=== PATIENT | male | born 1950 | race Caucasian/White ===

== ENCOUNTER 2017-06-07 22:53 | Emergency (ER) | payer MEDICARE ==
[2017-06-07] MEDS ORDERED: SODIUM CHLORIDE 0.9% 1,000 ML IV STA ×2 (23:03)
--- NOTE | 2017-06-07 23:05 | ED ---
General Adult HPI - General Chief complaint: Chest Pain Stated complaint: a-fib Time Seen by Provider: 06/07/17 23:00 Source: patient, RN notes reviewed, old records reviewed Mode of arrival: wheelchair Limitations: physical limitation - History of Present Illness Initial comments: This is a 66-year-old male to the ER for evaluation of elevated heart rate low blood pressure. Patient has history of same. Patient has history of A. fib. History of high blood pressure. Patient takes nitro for his heart disease and was taking nitro to help with his elevated heart rate which did not help. His heart rate continued to get worse. Patient is also complaining of lightheadedness, he denies any chest pain or shortness of breath no headache. Patient has no other change in medications as of late. No significant complaints. This is a patient has which is ongoing. Patient also admits to not having metoprolol 2 days - Related Data Home Medications Medication Instructions Recorded Confirmed Albuterol Inhaler [Ventolin Hfa 2 puff INHALATION Q6HR PRN 07/17/14 10/25/15 Inhaler] Aspirin 325 mg PO HS 07/17/14 10/25/15 Citalopram Hydrobromide [CeleXA] 20 mg PO QAM 07/17/14 10/24/15 Hydrocodone/Acetaminophen [[place] 1 each PO TID PRN 07/17/14 10/24/15 10-325] Metoprolol Tartrate [Lopressor] 12.5 mg PO QAM 07/17/14 10/24/15 Omeprazole [PriLOSEC] 20 mg PO AC-BRKFST 07/17/14 10/24/15 Simvastatin [Zocor] 20 mg PO 07/17/14 10/24/15 Tamsulosin HCl [Flomax] 0.4 mg PO QAM 07/17/14 10/25/15 Nitroglycerin Sl Tabs [Nitrostat] 0.4 mg SUBLINGUAL DIRECTED PRN 12/07/14 Cyclobenzaprine [Flexeril] 10 mg PO HS 10/24/15 10/25/15 Losartan/Hydrochlorothiazide 1 tab PO QAM 10/24/15 10/24/15 [Hyzaar 100-25 Tablet] Allergies Allergy/AdvReac Type Severity Reaction Status Date / Time No Known Allergies Allergy Verified 06/07/17 22:59 Review of Systems ROS Statement: Those systems with pertinent positive or pertinent negative responses have been documented in the HPI. ROS Other: All systems not noted in ROS Statement are negative. Past Medical History Past Medical History: Chest Pain / Angina, COPD, GERD/Reflux, Hearing Disorder / Deafness, Hyperlipidemia, Hypertension, Myocardial Infarction ([place]), Osteoarthritis ([place]) Additional Past Medical History / Comment(s): migraines, kidney stone Last Myocardial Infarction Date:: 2009 History of Any Multi-Drug Resistant Organisms: None Reported Past Surgical History: Appendectomy, Heart Catheterization With Stent, Orthopedic Surgery Additional Past Surgical History / Comment(s): rt ROTATOR CUFF, DEVIATED SEPTUM , angioplasty x 2 Past Anesthesia/Blood Transfusion Reactions: No Reported Reaction Date of Last Stent Placement:: 2009 Past Psychological History: No Psychological Hx Reported Smoking Status: Current every day smoker Past Alcohol Use History: None Reported Past Drug Use History: None Reported - Past Family History Father Family Medical History: Dementia Mother Additional Family Medical History / Comment(s): WHEN PT WAS 6 SHE HAD RHEUMATIC HEART Brother(s) Family Medical History: Cancer Son(s) Family Medical History: Deep Vein Thrombosis (DVT) General Exam Limitations: physical limitation General appearance: alert, in no apparent distress Head exam: Present: atraumatic, normocephalic, normal inspection Eye exam: Present: normal appearance, PERRL, EOMI. Absent: scleral icterus, conjunctival injection, periorbital swelling ENT exam: Present: normal exam, mucous membranes moist Neck exam: Present: normal inspection. Absent: tenderness, meningismus, lymphadenopathy Respiratory exam: Present: normal lung sounds bilaterally. Absent: respiratory distress, wheezes, rales, rhonchi, stridor Cardiovascular Exam: Present: normal rhythm, tachycardia, normal heart sounds. Absent: systolic murmur, diastolic murmur, rubs, gallop, clicks GI/Abdominal exam: Present: soft, normal bowel sounds. Absent: distended, tenderness, guarding, rebound, rigid Extremities exam: Present: normal inspection, full ROM, normal capillary refill. Absent: tenderness, pedal edema, joint swelling, calf tenderness Back exam: Present: normal inspection Neurological exam: Present: alert, oriented X3, CN II-XII intact Psychiatric exam: Present: normal affect, normal mood Skin exam: Present: warm, dry, intact, normal color. Absent: rash Course Vital Signs 06/07/17 06/07/17 06/07/17 22:55 23:15 23:22 Temperature 99.3 F Pulse Rate 165 H 148 H Pulse Rate [ 144 H Tin Can Feeder ] Respiratory 20 18 Rate Blood Pressure 115/71 114/79 O2 Sat by Pulse 98 98 Oximetry 06/07/17 06/07/17 23:27 23:47 Temperature Pulse Rate 70 Pulse Rate [ 70 Tin Can Feeder ] Respiratory 18 Rate Blood Pressure 114/79 O2 Sat by Pulse 97 Oximetry - Reevaluation(s) Reevaluation #1: 06/08/17 00:24 Patient symptoms resolved with IV metoprolol, heart rate lowered blood pressure elevated and patient can be discharged home EKG Findings - EKG Comments: EKG Findings:: EKG shows sinus tachycardia rate of 155, QRS 166, QRS 70, QTc [address] depression laterally Medical Decision Making - Medical Decision Making 66-year-old ER for evaluation of elevated heart rate low blood pressure. That is improved metoprolol. Patient can be discharged home with states at this point he feels fine with no chest pain or shortness of breath no abdominal pain. That she would like to be discharged home, patient sitting up in bed comfortable talking to his and states his reviewable - Lab Data Result diagrams: 06/07/17 23:15 06/07/17 23:15 Lab Results 06/07/17 06/07/17 06/07/17 Range/Units 23:15 23:15 23:15 WBC 16.5 H (3.8-10.6) k/uL RBC 4.90 (4.30-5.90) m/uL Hgb 16.0 (13.0-17.5) gm/dL Hct 46.5 (39.0-53.0) % MCV 94.9 (80.0-100.0) fL MCH 32.6 (25.0-35.0) pg MCHC 34.3 (31.0-37.0) g/dL RDW 13.5 (11.5-15.5) % Plt Count 321 (150-450) k/uL Neutrophils % 65 % Lymphocytes % 24 % Monocytes % 7 % Eosinophils % 2 % Basophils % 1 % Neutrophils # 10.6 H (1.3-7.7) k/uL Lymphocytes # 4.0 (1.0-4.8) k/uL Monocytes # 1.1 H (0-1.0) k/uL Eosinophils # 0.3 (0-0.7) k/uL Basophils # 0.1 (0-0.2) k/uL PT (9.0-12.0) sec INR (<1.2) APTT (22.0-30.0) sec D-Dimer (<0.60) mg/L FEU Sodium 139 (137-145) mmol/L Potassium 4.2 (3.5-5.1) mmol/L Chloride 100 (98-107) mmol/L Carbon Dioxide 24 (22-30) mmol/L Anion Gap 15 mmol/L BUN 20 (9-20) mg/dL Creatinine 1.20 (0.66-1.25) mg/dL Est GFR (MDRD) Af Amer >60 (>60 ml/min/1.73 sqM) Est GFR (MDRD) Non-Af >60 (>60 ml/min/1.73 sqM) Glucose 219 H (74-99) mg/dL Plasma Lactic Acid Sorin (0.7-2.0) mmol/L Calcium 9.8 (8.4-10.2) mg/dL Phosphorus 2.4 L (2.5-4.5) mg/dL Magnesium 1.6 (1.6-2.3) mg/dL Total Bilirubin 0.5 (0.2-1.3) mg/dL AST 50 (17-59) U/L ALT 51 (21-72) U/L Alkaline Phosphatase 58 (38-126) U/L Total Creatine Kinase 79 (55-170) U/L CK-MB (CK-2) 2.1 (0.0-2.4) ng/mL CK-MB (CK-2) Rel Index 2.7 Troponin I 0.060 H* (0.000-0.034) ng/mL Total Protein 8.1 (6.3-8.2) g/dL Albumin 4.5 (3.5-5.0) g/dL TSH 1.440 (0.465-4.680) mIU/L 06/07/17 06/07/17 Range/Units 23:15 23:15 WBC (3.8-10.6) k/uL RBC (4.30-5.90) m/uL Hgb (13.0-17.5) gm/dL Hct (39.0-53.0) % MCV (80.0-100.0) fL MCH (25.0-35.0) pg MCHC (31.0-37.0) g/dL RDW (11.5-15.5) % Plt Count (150-450) k/uL Neutrophils % % Lymphocytes % % Monocytes % % Eosinophils % % Basophils % % Neutrophils # (1.3-7.7) k/uL Lymphocytes # (1.0-4.8) k/uL Monocytes # (0-1.0) k/uL Eosinophils # (0-0.7) k/uL Basophils # (0-0.2) k/uL PT 9.8 (9.0-12.0) sec INR 1.0 (<1.2) APTT 22.5 (22.0-30.0) sec D-Dimer 1.04 H (<0.60) mg/L FEU Sodium (137-145) mmol/L Potassium (3.5-5.1) mmol/L Chloride (98-107) mmol/L Carbon Dioxide (22-30) mmol/L Anion Gap mmol/L BUN (9-20) mg/dL Creatinine (0.66-1.25) mg/dL Est GFR (MDRD) Af Amer (>60 ml/min/1.73 sqM) Est GFR (MDRD) Non-Af (>60 ml/min/1.73 sqM) Glucose (74-99) mg/dL Plasma Lactic Acid Sorin 3.7 H* (0.7-2.0) mmol/L Calcium (8.4-10.2) mg/dL Phosphorus (2.5-4.5) mg/dL Magnesium (1.6-2.3) mg/dL Total Bilirubin (0.2-1.3) mg/dL AST (17-59) U/L ALT (21-72) U/L Alkaline Phosphatase (38-126) U/L Total Creatine Kinase (55-170) U/L CK-MB (CK-2) (0.0-2.4) ng/mL CK-MB (CK-2) Rel Index Troponin I (0.000-0.034) ng/mL Total Protein (6.3-8.2) g/dL Albumin (3.5-5.0) g/dL TSH (0.465-4.680) mIU/L - Radiology Data Radiology results: report reviewed (Chest x-ray is negative), image reviewed Disposition Clinical Impression: Tachycardia Disposition: HOME SELF-CARE Condition: Good Instructions: Tachycardia (ED) Referrals: Rodrigo Busby III, MD [Primary Care Provider] - 1-2 days
[2017-06-07] MEDS ORDERED: MORPHINE SULFATE 5 MG/ML SYRINGE IVP STA (23:13)
[2017-06-07] MEDS: METOPROLOL TARTRATE 5 MG/5 ML VIAL IVP STA ×2 (23:21→23:30)
[2017-06-07 23:27] LABS: Basophils # (A) 0.1 k/uL (0-0.2); Basophils % (A) 1 %; CH 33.2; CHCM 35.2; Eosinophils # (A) 0.3 k/uL (0-0.7); Eosinophils % (A) 2 %; HCT 46.5 % (39.0-53.0); HDW 3.09; Luc # (Auto) 0.38; Luc % (Auto) 2; Lymphocytes % (A) 24 %; MCH 32.6 pg (25.0-35.0); MCHC 34.3 g/dL (31.0-37.0); MCV 94.9 fL (80.0-100.0); Mean Platelet Volume 6.4; Monocytes # (A) 1.1 k/uL (0-1.0); Monocytes % (A) 7 %; Neutrophils # (A) 10.6 k/uL (1.3-7.7); Neutrophils % (A) 65 %; RDW 13.5 % (11.5-15.5); WBC 16.5 k/uL (3.8-10.6); WBC (Perox) 15.15
[2017-06-07 23:31] VITALS: RESP 18
[2017-06-07 23:37] LABS: ALT 51 U/L (21-72); AST 50 U/L (17-59); Alkaline Phosphatase 58 U/L (38-126); Anion Gap 15 mmol/L; Blood Urea Nitrogen 20 mg/dL (9-20); Calcium 9.8 mg/dL (8.4-10.2); Carbon Dioxide 24 mmol/L (22-30); Chloride 100 mmol/L (98-107); Glucose 219 mg/dL (74-99); Magnesium 1.6 mg/dL (1.6-2.3); Non-African American GFR(MDRD) >60 (>60 ml/min/1.73 sqM); Phosphorus 2.4 mg/dL (2.5-4.5); Potassium 4.2 mmol/L (3.5-5.1); Sodium 139 mmol/L (137-145); Total Bilirubin 0.5 mg/dL (0.2-1.3); Total Protein 8.1 g/dL (6.3-8.2)
[2017-06-07 23:40] LABS: Partial Thromboplastin Time 22.5 sec (22.0-30.0); Prothrombin Time 9.8 sec (9.0-12.0)
[2017-06-08 00:03] LABS: Creatine Kinase MB 2.1 ng/mL (0.0-2.4)
[2017-06-08 00:10] LABS: Troponin I 0.06 ng/mL (0.000-0.034)
--- NOTE | 2017-06-08 00:17 | XR ---
EXAM: XR Chest, 2 Views CLINICAL HISTORY: Reason: Weakness TECHNIQUE: Frontal and lateral views of the chest. COMPARISON: No relevant prior studies available. FINDINGS: Lungs: Mild peribronchial thickening. Mild left lower lobe airspace opacity favoring atelectasis. Pleural space: Unremarkable. No pneumothorax. Heart: Unremarkable. No cardiomegaly. Mediastinum: Unremarkable. Bones/joints: Mild degenerative disc changes. IMPRESSION: 1. Mild peribronchial thickening which could represent small airways disease . No consolidation identified, with mild air space opacity in the left base favoring atelectasis.
[2017-06-08] MEDS ORDERED: RX INFO: IV CONTRAST WAS GIVEN 1 EACH MISC MISCELLANE PRN (00:21)
[2017-06-08 00:30] VITALS: BP 152/83; PULSE 84; TEMP 98.2
== END 2017-06-08 00:34 | disposition home or self-care (01) ==
LOC: EC 22:53
DX: R00.0 Tachycardia, unspecified (principal); R07.9 Chest pain, unspecified; K21.9 Gastro-esophageal reflux disease without esophagitis; E78.5 Hyperlipidemia, unspecified; I10 Essential (primary) hypertension; I25.2 Old myocardial infarction; M19.90 Unspecified osteoarthritis, unspecified site; F17.200 Nicotine dependence, unspecified, uncomplicated; Z79.899 Other long term (current) drug therapy
CPT/HCPCS: 36415; 71020; 80053; 82550; 82553; 83605; 83735; 84100; 84443; 84484; 85025; 85379; 85610; 85730; 93005; 96361; 96374; 99285

== ENCOUNTER 2017-07-23 16:40 | Inpatient (IN) | payer MEDICARE ==
[2017-07-23] MEDS ORDERED: ACETAMINOPHEN TAB 325 MG TAB PO PRN (18:29)
[2017-07-23] MEDS ORDERED: ALBUTEROL NEBULIZED 2.5 MG/3 ML INHALATION PRN (18:32)
[2017-07-23] MEDS ORDERED: NITROGLYCERIN SL TABS 0.4 MG TAB SUBLINGUAL PRN (18:32)
[2017-07-23] MEDS: SODIUM CHLORIDE 0.9% 1,000 ML IV SCH (18:41)
[2017-07-23] MEDS: ALBUTEROL NEBULIZED 2.5 MG/3 ML INHALATION SCH (19:06)
[2017-07-23] MEDS: SYMBICORT 160-4.5 MCG INHALER INHALATION SCH (19:06)
[2017-07-23 19:49] LABS: Basophils # (A) 0.1 k/uL (0-0.2); Basophils % (A) 1 %; Eosinophils # (A) 0.3 k/uL (0-0.7); Eosinophils % (A) 2 %; HCT 44.3 % (39.0-53.0); Lymphocytes # (A) 4.1 k/uL (1.0-4.8); Lymphocytes % (A) 24 %; MCH 32.2 pg (25.0-35.0); MCHC 33.9 g/dL (31.0-37.0); MCV 94.8 fL (80.0-100.0); Mean Platelet Volume 6.9; Monocytes % (A) 6 %; Neutrophils # (A) 11.1 k/uL (1.3-7.7); Neutrophils % (A) 66 %; Platelet Count 291 k/uL (150-450); RBC 4.68 m/uL (4.30-5.90); WBC 16.8 k/uL (3.8-10.6)
[2017-07-23 20:12] LABS: Anion Gap 16 mmol/L; Blood Urea Nitrogen 17 mg/dL (9-20); Calcium 9.8 mg/dL (8.4-10.2); Carbon Dioxide 25 mmol/L (22-30); Chloride 101 mmol/L (98-107); Glucose 148 mg/dL (74-99); Potassium 4.1 mmol/L (3.5-5.1); Sodium 142 mmol/L (137-145)
[2017-07-23] MEDS: AMPICILLIN-SULBACTAM 3 GM in SODIUM CHLORIDE 0.9% 100 ML IVPB SCH (20:13)
[2017-07-23] MEDS: ASPIRIN 325 MG TAB PO SCH (20:13)
[2017-07-23] MEDS: CYCLOBENZAPRINE 10 MG TAB PO SCH (20:13)
[2017-07-23] MEDS: TAMSULOSIN 0.4 MG CAP.ER.24H PO SCH (20:14)
[2017-07-23] MEDS: ATORVASTATIN 10 MG TAB PO SCH (20:14)
[2017-07-23] MEDS: SULFACETAMIDE SOD 10% OPHTH DROPS 15 ML BTL BOTH EYES SCH (20:14)
[2017-07-24] MEDS: AMPICILLIN-SULBACTAM 3 GM in SODIUM CHLORIDE 0.9% 100 ML IVPB SCH ×5 (00:54→23:58)
[2017-07-24] MEDS: SULFACETAMIDE SOD 10% OPHTH DROPS 15 ML BTL BOTH EYES SCH ×4 (03:08→21:59)
[2017-07-24] MEDS: HYDROcodone/APAP 7.5-325MG 1 EACH TAB PO PRN ×3 (04:06→22:00)
[2017-07-24] MEDS: CYCLOBENZAPRINE 10 MG TAB PO SCH ×3 (06:29→21:59)
[2017-07-24] MEDS: SYMBICORT 160-4.5 MCG INHALER INHALATION SCH ×2 (07:22→19:30)
[2017-07-24] MEDS: ALBUTEROL NEBULIZED 2.5 MG/3 ML INHALATION SCH ×3 (07:22→19:30)
[2017-07-24] MEDS: PANTOPRAZOLE 40 MG TABLET PO SCH (08:32)
[2017-07-24] MEDS: LOSARTAN-HCTZ 50-12.5 MG 1 EACH TAB PO SCH (08:32)
[2017-07-24] MEDS: DOCUSATE 100 MG CAP PO SCH (08:32)
[2017-07-24] MEDS: CITALOPRAM HYDROBROMIDE 20 MG TAB PO SCH (08:32)
[2017-07-24] MEDS: HYDROCHLOROTHIAZIDE 12.5 MG CAP PO SCH (08:33)
[2017-07-24] MEDS: METOPROLOL TARTRATE 25 MG TAB PO SCH (08:33)
[2017-07-24] MEDS: CLOTRIMAZOLE 1% CREAM 15 GM TUBE TOPICAL SCH ×2 (08:33→08:36)
--- NOTE | 2017-07-24 15:02 | CONS ---
CONSULTATION CHIEF COMPLAINT: Right arm and hand pain along with redness and drainage. HISTORY OF PRESENT ILLNESS: The patient is a 66-year-old, right-hand dominant, retired male who presents with a several day history of right arm and hand pain along with redness and drainage after being bitten by his dog at home. He initially was seen in an outpatient facility and was sent to the emergency room. He notes some low-grade fevers, however, denies chills. He was given a tetanus booster at his outpatient visit. PAST MEDICAL HISTORY: Significant for COPD, coronary artery disease, arthritis, hyperlipidemia, and hypertension along with history of renal stones. CURRENT MEDICATIONS: Are reviewed. He denies drug allergies. FAMILY HISTORY: Noncontributory. SOCIAL HISTORY: Negative for current tobacco or alcohol use. REVIEW OF SYSTEMS: Sixteen point review of systems otherwise reviewed and is noncontributory. PHYSICAL EXAMINATION: On examination, patient is a well-developed, well-nourished male of endomorphic habitus. Currently, his temperature is 99 degrees with stable vital signs. He is alert and oriented x4. He is nontender about the cervical, thoracic, and lumbar spine. He is nontender about the right shoulder and elbow. On examination of his right forearm, he has multiple puncture wounds with moderate swelling and erythema about a mid ulnar forearm wound with mild drainage. He also has multiple wounds about his right palm. Over the thenar eminence, there is moderate swelling and erythema. There is expressible purulent drainage from that wound as well. He is nontender over the flexor sheaths of all digits. He is able to make a full fist. Light touch is distally intact. Laboratory results show peripheral white blood cell count of 16.8. IMPRESSION: Multiple dog bites on the right forearm and hand with cellulitis/abscess. RECOMMENDATIONS: I talked to the patient and his regarding his treatment options. At this point, we will plan to proceed with incision and drainage of his right palmar wound along with the right ulnar forearm wound. We will continue antibiotics per Infectious Disease. Thank you for this consultation. MMJOCELINEL / CHAPARRITAN: [id number] /
[2017-07-24 15:51] LABS: Prothrombin Time 10.2 sec (9.0-12.0)
[2017-07-24] MEDS: SODIUM CHLORIDE 0.9% 1,000 ML IV SCH (16:41)
[2017-07-24] MEDS: ATORVASTATIN 10 MG TAB PO SCH (21:59)
[2017-07-24] MEDS: ASPIRIN 325 MG TAB PO SCH (21:59)
[2017-07-24] MEDS: TAMSULOSIN 0.4 MG CAP.ER.24H PO SCH (21:59)
--- NOTE | 2017-07-24 22:02 | HP ---
HISTORY AND PHYSICAL DATE OF SERVICE: 07/24/2017 CHIEF COMPLAINTS: Right arm swelling and dog bite. HISTORY OF PRESENT ILLNESS: This 66-year-old gentleman with a past medical history of multiple medical problems, including COPD, GERD, hypertension, hyperlipidemia, myocardial infarction being followed by Dr. Busby in the outpatient setting apparently was bitten by the dog few days ago. The patient was bitten by the dog at 2 places. The dog is okay, up to date with injections and the patient noted pain and swelling of the palm of the right hand as well as the lower forearm and the patient came to [facility], admitted for further evaluation and treatment. The patient is having low-grade fevers. No headache, loss of consciousness, seizures at this time. PAST MEDICAL HISTORY: History of COPD, GERD, hearing defects, hypertension, hyperlipidemia, history of myocardial infarction, DJD. MEDICATIONS PRIOR TO ADMISSION: Include: 1. Bleph-10 1 drop both eyes every 6 hours. 2. Ventolin 2 puffs q.4h p.r.n. 3. Ketoconazole 2% 1 application daily. 4. Celexa 20 mg q.a.m. 5. Symbicort 160/4.5, 2 puffs b.i.d. 6. Albuterol 2 puffs b.i.d. 7. Omeprazole 40 mg q.a.m. 8. Hydrocodone 7.5 mg t.i.d. 9. Flexeril 10 mg q.i.d. 10.Nitrostat 0.4 sublingual p.r.n. 11.Lopressor . 12.Losartan 100/25 mg q.a.m. 13.Flomax 0.4 q.h.s. 14.Zocor 20 mg q.h.s. 15.Colace 100 mg q.a.m. 16.Aspirin 325 mg q.h.s. ALLERGIES: None. FAMILY HISTORY: History of dementia, rheumatic heart disease. SOCIAL HISTORY: History of smoking. No history of alcohol intake. REVIEW OF SYSTEMS: ENT: No diminished hearing, diminished vision. CARDIOVASCULAR: No angina, palpitations. RESPIRATORY: As mentioned earlier. GI: No nausea or vomiting. : No dysuria. NERVOUS: No numbness or weakness. ALLERGY/IMMUNOLOGY: No asthma or hay fever. MUSCULOSKELETAL: As mentioned earlier. HEMATOLOGY/ONCOLOGY: No history of anemia. ENDOCRINE: No history of diabetes, hypothyroidism. CONSTITUTIONAL: As mentioned earlier. DERMATOLOGY: Negative. RHEUMATOLOGY: Negative. PSYCHIATRY: As mentioned earlier. PHYSICAL EXAMINATION: Alert and oriented x3. Pulse is 74, blood pressure 116/70, respirations 16, temperature 98 degrees, pulse ox 94% on room air. HEENT: Conjunctivae normal. NECK: No jugular venous distention. CARDIOVASCULAR: S1, S2 muffled. RESPIRATORY: Breath sounds diminished in the bases. A few scattered rhonchi. No crackles. ABDOMEN: Soft, nontender. LEGS: No edema. No swelling. NERVOUS SYSTEM: Higher functions as mentioned earlier. Moves all 4 limbs. No focal deficits. LYMPHATIC: No lymphadenopathy in neck or axillae. SKIN: Significant lesions, tenderness and erythema of the right and right lower forearm present. LABS: WBC 15.8. ASSESSMENT: 1. Cellulitis of the right hand, status post dog bite, rule out tenosynovitis. 2. Increased WBC. 3. History of chronic obstructive pulmonary disease. 4. Gastroesophageal reflux disease. 5. Hard of hearing. 6. Hypertension. 7. Hyperlipidemia. 8. History of myocardial infarction. 9. History of degenerative joint disease. 10.History of prostate disorder. 11.History of migraines. 12.History of recurrent Escherichia coli urinary tract infection. 13.History of nephrolithiasis. 14.History of coronary artery disease and stent. RECOMMENDATIONS AND DISCUSSION: In this 66-year-old gentleman who presented with multiple complex medical issues , will monitor the patient closely. follow the cultures, orthopedic evaluation. Orthopedic surgeon Dr. Tejada is planning incision and drainage of right palmar wound along with right ulnar forearm wound and antibiotics will be continued and prognosis guarded because of multiple complex medical issues. Further recommendations to follow MMODL / IJN: [id number] / MTDD
[2017-07-25] MEDS: SULFACETAMIDE SOD 10% OPHTH DROPS 15 ML BTL BOTH EYES SCH ×5 (02:59→21:27)
[2017-07-25] MEDS: AMPICILLIN-SULBACTAM 3 GM in SODIUM CHLORIDE 0.9% 100 ML IVPB SCH ×3 (06:04→17:49)
[2017-07-25] MEDS: CYCLOBENZAPRINE 10 MG TAB PO SCH ×4 (06:11→21:27)
[2017-07-25] MEDS: HYDROcodone/APAP 7.5-325MG 1 EACH TAB PO PRN ×3 (06:11→21:27)
[2017-07-25] MEDS: CLOTRIMAZOLE 1% CREAM 15 GM TUBE TOPICAL SCH (07:56)
[2017-07-25] MEDS: ALBUTEROL NEBULIZED 2.5 MG/3 ML INHALATION SCH ×3 (08:09→19:37)
[2017-07-25] MEDS: SYMBICORT 160-4.5 MCG INHALER INHALATION SCH ×2 (08:09→19:37)
[2017-07-25] MEDS: CITALOPRAM HYDROBROMIDE 20 MG TAB PO SCH (08:18)
[2017-07-25] MEDS: LOSARTAN-HCTZ 50-12.5 MG 1 EACH TAB PO SCH (08:18)
[2017-07-25] MEDS: HYDROCHLOROTHIAZIDE 12.5 MG CAP PO SCH (08:18)
[2017-07-25] MEDS: DOCUSATE 100 MG CAP PO SCH (08:18)
[2017-07-25] MEDS: METOPROLOL TARTRATE 25 MG TAB PO SCH (08:19)
[2017-07-25] MEDS: PANTOPRAZOLE 40 MG TABLET PO SCH (08:19)
[2017-07-25 11:26] LABS: Basophils # (A) 0.1 k/uL (0-0.2); Basophils % (A) 1 %; Eosinophils # (A) 0.5 k/uL (0-0.7); Eosinophils % (A) 5 %; HCT 38.2 % (39.0-53.0); HGB 12.6 gm/dL (13.0-17.5); Lymphocytes # (A) 3.4 k/uL (1.0-4.8); Lymphocytes % (A) 34 %; MCH 31.7 pg (25.0-35.0); MCHC 32.9 g/dL (31.0-37.0); MCV 96.5 fL (80.0-100.0); Mean Platelet Volume 6.6; Monocytes # (A) 0.6 k/uL (0-1.0); Monocytes % (A) 6 %; Neutrophils # (A) 5.2 k/uL (1.3-7.7); Neutrophils % (A) 52 %; Platelet Count 249 k/uL (150-450); RBC 3.96 m/uL (4.30-5.90); RDW 13.1 % (11.5-15.5); WBC 10.1 k/uL (3.8-10.6)
[2017-07-25 11:42] LABS: Anion Gap 10 mmol/L; Blood Urea Nitrogen 16 mg/dL (9-20); Calcium 8.9 mg/dL (8.4-10.2); Carbon Dioxide 29 mmol/L (22-30); Chloride 104 mmol/L (98-107); Glucose 97 mg/dL (74-99); Potassium 3.9 mmol/L (3.5-5.1); Sodium 143 mmol/L (137-145)
[2017-07-25] MEDS: SODIUM CHLORIDE 0.9% 1,000 ML IV SCH (12:31)
[2017-07-25] MEDS ORDERED: PROPOFOL 10 MG/ML 20 ML VIAL IV ONE (13:17)
[2017-07-25] MEDS ORDERED: fentaNYL (PF) 50 MCG/ML 2 ML AMP ONE (13:17)
[2017-07-25] MEDS ORDERED: MIDAZOLAM 2 MG/2 ML VIAL ONE (13:17)
[2017-07-25] MEDS ORDERED: SUCCINYLCHOLINE CHLORIDE 100 MG/5 ML SYR IV ONE (13:17)
[2017-07-25] MEDS ORDERED: IV FLUID CONTINUATION 1,000 ML IV ONE (13:46)
--- NOTE | 2017-07-25 14:03 | P.OP ---
Date of Procedure: 07/25/17 Preoperative Diagnosis: Right forearm/palmar abscess status post dog bites Postoperative Diagnosis: Same Procedure(s) Performed: Incision and drainage with irrigation and debridement right forearm and hand abscess/dog bites Anesthesia: BROCK Surgeon: Herber Tejada Heel Scourer #1: Bruno Patel Estimated Blood Loss (ml): 2 Pathology: other (Cultures) Condition: stable Disposition: PACU Indications for Procedure: The patient is a 66-year-old male who presents after being bitten by his dog with progressive redness/drainage from his forearm and right hand. A discussion of the risks and benefits of operative intervention to include incision and drainage with irrigation and debridement of his wounds/abscess was discussed. Informed consent was obtained. Specific risks of the surgery to include possible need for subsequent procedures and persistence of infection was discussed. Operative Findings: As below Description of Procedure: The patient was brought to the operating room and after induction of general anesthesia the right upper extremity was prepped and draped in normal fashion. The tourniquet was inflated to 250 mm merger. His right palmar thenar wound measured 4 x 5 mm. This was opened. The edges were debrided sharply with a scalpel including the skin and subcutaneous tissues removing the necrotic tissue. Purulence was obtained. The wound was copiously irrigated with normal saline. The wound edges were loosely reapproximated with simple 3-0 nylon suture. A second palmar wound over the volar aspect of the index at the palmar crease was irrigated. There is no purulence. The wound edges were reapproximated simple 3-0 nylon suture. The wound measured 1 cm in length. A third area involving the proximal ulnar forearm had a puncture wound measuring 3 x 4 mm that was opened with a scalpel extending this to proximally 5 mm. There was purulence expressed. The wound edges were sharply debrided including the skin and subcutaneous tissues with a scalpel down to a bleeding surface. The wound is copiously irrigated with normal saline. The wound edges were loosely reapproximated with simple 3-0 nylon suture. A sterile dressing was applied. The tourniquet was deflated less than 20 minutes total tourniquet time. The patient was awoken from general anesthesia and transferred to the recovery room in good condition. Blood loss was estimated 2 mL. No complications were incurred. Sponge and needle counts were correct in the case.
--- NOTE | 2017-07-25 20:12 | PN ---
PROGRESS NOTE DATE OF SERVICE: 07/25/17 INTERVAL HISTORY: This 66-year-old gentleman who was admitted with cellulitis of the right hand after dog is on broad-spectrum IV antibiotics. Dr. Tejada performed incision and drainage and irrigation debridement of the right forearm and hand abscess for dog bite. No chest pain. No palpitations. No fever. PHYSICAL EXAM: Alert and oriented x3. The pulse is 58, blood pressure 130/69, respiratory rate 16, temperature 97.2, pulse ox 94% on room air. HEENT: Conjunctivae normal. Neck: No jugular venous distention. Cardiovascular: S1, S2 muffled. Respiratory: Breath sounds diminished in the bases. No rhonchi and no crackles. ABDOMEN: Soft, nontender. No mass. LEGS: No edema. No swelling. Right hand status post surgery. Central nervous system: No focal deficits. LAB STUDIES: WBC 10.2, hemoglobin 12.6. ASSESSMENT: 1. Cellulitis, right hand with abscess with right palm and as well as the right brennan status post dog bite. 2. Status post incision and drainage as well as irrigation, excisional debridement of the right forearm and hand abscess by Orthopedic surgery. 3. Increased WBC. 4. Chronic obstructive pulmonary disease. 5. Gastroesophageal reflux disease. 6. Hard of hearing. 7. Hypertension. 8. Hyperlipidemia. 9. History of myocardial infarction. 10.History of degenerative joint disease. 11.History of prostate cancer. 12.History of migraines. 13.History of recurrent E coli urinary tract infection. 14.History of nephrolithiasis. 15.History of coronary artery disease, stent. RECOMMENDATIONS AND DISCUSSION: Recommend to continue current medications, management and symptomatic treatment. Otherwise, at this time, I recommend to continue the antibiotics. White count is improving. Closely follow with Infectious Disease and as well as Orthopedic surgery. Further recommendations to follow. MMODL / IJN: [id number] /
[2017-07-25] MEDS: TAMSULOSIN 0.4 MG CAP.ER.24H PO SCH (21:27)
[2017-07-25] MEDS: ASPIRIN 325 MG TAB PO SCH (21:27)
[2017-07-25] MEDS: ATORVASTATIN 10 MG TAB PO SCH (21:27)
[2017-07-26] MEDS: AMPICILLIN-SULBACTAM 3 GM in SODIUM CHLORIDE 0.9% 100 ML IVPB SCH ×5 (00:14→23:46)
[2017-07-26] MEDS: SULFACETAMIDE SOD 10% OPHTH DROPS 15 ML BTL BOTH EYES SCH ×4 (03:11→20:26)
[2017-07-26 08:27] LABS: Basophils # (A) 0.1 k/uL (0-0.2); Basophils % (A) 1 %; Eosinophils # (A) 0.5 k/uL (0-0.7); Eosinophils % (A) 5 %; HCT 41.1 % (39.0-53.0); Lymphocytes # (A) 3.5 k/uL (1.0-4.8); Lymphocytes % (A) 38 %; MCH 31.3 pg (25.0-35.0); MCHC 31.7 g/dL (31.0-37.0); MCV 98.6 fL (80.0-100.0); Mean Platelet Volume 6.6; Monocytes # (A) 0.6 k/uL (0-1.0); Monocytes % (A) 6 %; Neutrophils # (A) 4.3 k/uL (1.3-7.7); Neutrophils % (A) 47 %; Platelet Count 232 k/uL (150-450); RBC 4.17 m/uL (4.30-5.90); WBC 9.2 k/uL (3.8-10.6)
[2017-07-26] MEDS: HYDROcodone/APAP 7.5-325MG 1 EACH TAB PO PRN ×2 (08:42→20:32)
[2017-07-26] MEDS: METOPROLOL TARTRATE 25 MG TAB PO SCH (08:43)
[2017-07-26] MEDS: HYDROCHLOROTHIAZIDE 12.5 MG CAP PO SCH (08:43)
[2017-07-26] MEDS: DOCUSATE 100 MG CAP PO SCH (08:43)
[2017-07-26] MEDS: LOSARTAN-HCTZ 50-12.5 MG 1 EACH TAB PO SCH (08:43)
[2017-07-26] MEDS: CYCLOBENZAPRINE 10 MG TAB PO SCH ×3 (08:44→20:26)
[2017-07-26] MEDS: CITALOPRAM HYDROBROMIDE 20 MG TAB PO SCH (08:44)
[2017-07-26] MEDS: PANTOPRAZOLE 40 MG TABLET PO SCH (08:44)
[2017-07-26] MEDS: CLOTRIMAZOLE 1% CREAM 15 GM TUBE TOPICAL SCH (08:44)
[2017-07-26] MEDS: SODIUM CHLORIDE 0.9% 1,000 ML IV SCH (08:46)
[2017-07-26 08:47] LABS: Anion Gap 8 mmol/L; Blood Urea Nitrogen 15 mg/dL (9-20); Calcium 8.3 mg/dL (8.4-10.2); Carbon Dioxide 27 mmol/L (22-30); Chloride 106 mmol/L (98-107); Glucose 100 mg/dL (74-99); Potassium 3.9 mmol/L (3.5-5.1); Sodium 141 mmol/L (137-145)
[2017-07-26] MEDS: SYMBICORT 160-4.5 MCG INHALER INHALATION SCH ×2 (09:16→21:21)
[2017-07-26] MEDS: ALBUTEROL NEBULIZED 2.5 MG/3 ML INHALATION SCH ×4 (09:16→21:24)
[2017-07-26] MEDS ORDERED: MAGNESIUM HYDROXIDE 2,400 MG/10 ML CUP PO PRN (12:08)
--- NOTE | 2017-07-26 12:40 | CONS ---
CONSULTATION DATE OF SERVICE: 07/26/2017 REASON FOR CONSULTATION: Right hand and forearm dog bite cellulitis. HISTORY OF PRESENT ILLNESS: The patient is a 66-year-old male who has been bitten on his right hand and forearm by his dog on Wednesday, that was 3 days prior to presentation to the hospital. The patient has been soaking his hand and arm in water, Epsom salt; however, over the next few days, he noticed the right forearm to becoming more painful and swollen and red. The pain described it to be throbbing almost 6 to 7/10, and no radiation for the last 3 days prior to presentation to hospital. Patient denies significant drainage from it with surrounding swelling and redness. He did have some low-grade fever, but patient subsequently has been evaluated and admitted to the hospital. Patient has been seen by Surgery and did have drainage of the abscess, culture has been obtained. Has been treated with Unasyn. ID was consulted for further recommendation of antibiotic therapy. REVIEW OF SYSTEMS: CONSTITUTIONAL: Positive for weakness and chills. EYES: No complaint. ENT: No complaint. RESPIRATORY: No complaint. CARDIOVASCULAR: No complaint. GENITOURINARY: No complaint. GASTROINTESTINAL: No complaint. MUSCULOSKELETAL: As per HPI. INTEGUMENTARY: As per HPI. PSYCHOLOGICAL: No complaint. ENDOCRINE: No complaint. NEUROLOGIC: No complaint. PAST MEDICAL HISTORY: COPD, coronary artery disease, arthritis, hyperlipidemia, hypertension and renal stone. SURGICAL HISTORY: PTCA with stent, left rotator cuff repair, appendectomy, deviated septum repair. SOCIAL HISTORY: Current everyday smoker. No drinking or drug use. FAMILY HISTORY: Father history of dementia. Mother MIs from a rheumatic heart disease. ALLERGIES: No known drug allergies. MEDICATIONS: The patient is currently on Tylenol, [employer], Unasyn 3 g q.6, aspirin, Lipitor, Celexa, clotrimazole, Flexeril, Colace, hydrochlorothiazide, Lopressor, Nitrostat, Protonix, Flomax. PHYSICAL EXAMINATION: Blood pressure is 128/80 with a pulse of 57, temperature 98.1 He is 93% on room air. General description is an elderly male lying in bed, in no distress. No tachypnea or accessory muscle for respiration use. HEENT EXAMINATION: No pallor or scleral icterus. Oral mucosa is dry. NECK: Trachea central, no thyromegaly. LUNGS: Unlabored breathing, clear to auscultation anteriorly. No wheeze or crackle. HEART: S1, S2. Regular rate and rhythm. ABDOMEN: Soft, no tenderness. No guarding or rigidity. Examination of the right forearm with wound to have dried out. He did have a wound on the palmar aspect at the base of the thumb with some erythema. No foul smelling drainage was notice. NEUROLOGICALLY: Patient is awake, alert, and oriented x3. Mood and affect normal. LABS: Hemoglobin is 13, white count of 16.8 on admission, down to 9.2 with a BUN of 15, creatinine 1.0. He did have cultures obtained which are currently pending. DIAGNOSTIC IMPRESSION AND PLAN: Patient with right hand and forearm dog bite cellulitis with extensive swelling and redness on presentation to the hospital with elevated white count of 16.8 and low-grade fever likely related to the oral hudson of the dog including pasteurella. PLAN: 1. Recommend Unasyn 3 g IV piggyback q.6 hours that should provide coverage for the oral hudson of the dog. 2. Will wait for the cultures to finalize to determine the discharge antibiotic, more likely in oral. No need for PICC line. Thank you for this consultation. Will follow this patient along with you. MMODL / IJN: [id number] /
--- NOTE | 2017-07-26 15:35 | P.PN ---
Subjective Progress Note Date: 07/26/17 Principal diagnosis: Status post incision and drainage and irrigation and debridement right hand and forearm abscess Patient seen today resting in his hospital chair, he has family at bedside. He states he is doing well at this time, he does note some soreness throughout the hand. Denies any new onset of fever or chills. Objective - Vital Signs Vital signs: Vital Signs Temp 97.2 F L 07/26/17 15:00 Pulse 59 L 07/26/17 15:00 Resp 16 07/26/17 15:00 BP 130/65 07/26/17 15:00 Pulse Ox 95 07/26/17 15:00 Intake & Output 07/25/17 07/26/17 07/26/17 18:59 06:59 18:59 Intake Total 230 Output Total 2 Balance 228 Intake: IV 230 Output: Estimated Blood Loss 2 Other: # Voids 1 2 3 - Exam Right upper extremity: The incisions on the hand and forearm are clean and dry and intact. No obvious drainage noted. Sutures are in good position. There is some dark erythema surrounding the incision on the palmar incision over the thenar eminence. His radial pulses 2+. His sensation to light touch throughout that extremity is intact - Labs CBC & Chem 7: 07/26/17 07:43 07/26/17 07:43 Labs: Abnormal Lab Results - Last 24 Hours (Table) 07/26/17 07/26/17 Range/Units 07:43 07:43 RBC 4.17 L (4.30-5.90) m/uL Glucose 100 H (74-99) mg/dL Calcium 8.3 L (8.4-10.2) mg/dL Microbiology - Last 24 Hours (Table) 07/23/17 19:26 Blood Culture - Preliminary Blood No Growth after 48 hours 07/25/17 13:50 Gram Stain - Preliminary Hand - Right Wound Culture - Preliminary 07/23/17 18:24 Gram Stain - Final Arm - Right Wound Culture - Final 07/25/17 13:50 Anaerobic Culture - Preliminary Hand - Right Assessment and Plan Plan: Assessment: 1. Postop day #1 status post incision and drainage and irrigation and debridement right hand and forearm abscess Plan: 1. Pain control, oral medication as needed 2. Await culture and sensitivity, and infectious disease recommendations for outpatient antibiotics 3. Daily dressing changes 4. Ice and elevation 5. Medical recommendations 6. Discharge planning: On orthopedic standpoint, patient is stable for discharge Time with Patient: Less than 30
--- NOTE | 2017-07-26 19:40 | P.PN ---
Subjective Progress Note Date: 07/26/17 Progress note being dictated for Dr. Herr. This is a 66-year-old gentleman sustained a dogbite to the right forearm and hand, status post I&D. Swelling improving, patient reports improved fine and gross motor movements. Maintained on IV antibiotics of Unasyn as per infectious disease. Cultures pending. Denies chest pain, palpitations or increased shortness of breath. Good diet intake with no nausea or vomiting. Afebrile, normal WBC. Objective - Vital Signs Vital signs: Vital Signs Temp 97.2 F L 07/26/17 15:00 Pulse 59 L 07/26/17 15:00 Resp 16 07/26/17 16:00 BP 130/65 07/26/17 15:00 Pulse Ox 95 07/26/17 15:00 Intake & Output 07/26/17 07/26/17 07/27/17 06:59 18:59 06:59 Other: # Voids 2 1 - Exam PHYSICAL EXAM: VITAL SIGNS: As above GENERAL: Sitting up at side of bed, no acute distress HEENT: Conjunctivae normal. eyes normal. NECK: No JVD. No thyroid enlargement. No LNs CARDIOVASCULAR: S1, S2 muffled. No murmur RESPIRATION: Breath sounds diminished in the bases. No rhonchi or crackles. No bronchial breathing. ABDOMEN: Soft, nontender . No guarding. no masses palpable.Bowel sounds heard. LEGS: No edema. no swelling EXTREMITY: Right hand/forearm dressing clean dry and intact, PSYCHIATRY: Alert and oriented -3, mood and affect normal. NERVOUS SYSTEM: Cranial N 2-12 grossly normal. Moves all 4 limbs. Diffuse weakness No focal deficits. No sensory deficit. Joints: No active swelling. No inflammation. Lymphatic system. No LN neck axilla or groin. - Labs CBC & Chem 7: 07/26/17 07:43 07/26/17 07:43 Labs: Abnormal Lab Results - Last 24 Hours (Table) 07/26/17 07/26/17 Range/Units 07:43 07:43 RBC 4.17 L (4.30-5.90) m/uL Glucose 100 H (74-99) mg/dL Calcium 8.3 L (8.4-10.2) mg/dL Microbiology - Last 24 Hours (Table) 07/23/17 19:26 Blood Culture - Preliminary Blood No Growth after 48 hours 07/25/17 13:50 Gram Stain - Preliminary Hand - Right Wound Culture - Preliminary 07/23/17 18:24 Gram Stain - Final Arm - Right Wound Culture - Final 07/25/17 13:50 Anaerobic Culture - Preliminary Hand - Right Assessment and Plan Assessment: 1. Right hand and forearm Bite, cellulitis, abscess, status post I&D with irrigation, excisional debridement 2. COPD 3. Gastroesophageal reflux disease Plan: Continue on current medication regime ,monitoring and symptomatic treatment. Maintain IV antibiotics as per infectious disease. Await final culture sensitivities. Anticipate discharge for tomorrow pending cultures. The impression and plan of care has been dictated as directed. : I performed a history and examination of this patient, discussed the same with the dictator. I agree with the dictator's note ,documented as a scribe. Any additional findings or plans will be noted.
[2017-07-26] MEDS: TAMSULOSIN 0.4 MG CAP.ER.24H PO SCH (20:26)
[2017-07-26] MEDS: ATORVASTATIN 10 MG TAB PO SCH (20:26)
[2017-07-26] MEDS: ASPIRIN 325 MG TAB PO SCH (20:26)
[2017-07-26 23:10] VITALS: RESP 18
[2017-07-27] MEDS: SULFACETAMIDE SOD 10% OPHTH DROPS 15 ML BTL BOTH EYES SCH ×2 (02:49→08:49)
[2017-07-27] MEDS: CYCLOBENZAPRINE 10 MG TAB PO SCH (06:23)
[2017-07-27] MEDS: HYDROcodone/APAP 7.5-325MG 1 EACH TAB PO PRN (06:23)
[2017-07-27] MEDS: AMPICILLIN-SULBACTAM 3 GM in SODIUM CHLORIDE 0.9% 100 ML IVPB SCH ×2 (06:24→11:19)
[2017-07-27] MEDS: ALBUTEROL NEBULIZED 2.5 MG/3 ML INHALATION SCH ×3 (07:26→12:54)
[2017-07-27] MEDS: SYMBICORT 160-4.5 MCG INHALER INHALATION SCH (07:28)
[2017-07-27 08:25] VITALS: BP 112/56; PULSE 62; TEMP 97.1
[2017-07-27] MEDS: CITALOPRAM HYDROBROMIDE 20 MG TAB PO SCH (08:48)
[2017-07-27] MEDS: PANTOPRAZOLE 40 MG TABLET PO SCH (08:48)
[2017-07-27] MEDS: HYDROCHLOROTHIAZIDE 12.5 MG CAP PO SCH (08:49)
[2017-07-27] MEDS: DOCUSATE 100 MG CAP PO SCH (08:49)
[2017-07-27] MEDS: METOPROLOL TARTRATE 25 MG TAB PO SCH (08:49)
[2017-07-27] MEDS: CLOTRIMAZOLE 1% CREAM 15 GM TUBE TOPICAL SCH (08:49)
[2017-07-27] MEDS: LOSARTAN-HCTZ 50-12.5 MG 1 EACH TAB PO SCH (08:49)
[2017-07-27 09:50] LABS: Anion Gap 11 mmol/L; Blood Urea Nitrogen 13 mg/dL (9-20); Calcium 9.2 mg/dL (8.4-10.2); Carbon Dioxide 31 mmol/L (22-30); Chloride 103 mmol/L (98-107); Glucose 191 mg/dL (74-99); Potassium 4.2 mmol/L (3.5-5.1); Sodium 145 mmol/L (137-145)
[2017-07-27 10:39] LABS: Basophils # (A) 0.1 k/uL (0-0.2); Basophils % (A) 1 %; Eosinophils # (A) 0.4 k/uL (0-0.7); Eosinophils % (A) 4 %; HCT 41.4 % (39.0-53.0); HGB 13.4 gm/dL (13.0-17.5); Lymphocytes # (A) 2.9 k/uL (1.0-4.8); Lymphocytes % (A) 28 %; MCH 31.5 pg (25.0-35.0); MCHC 32.4 g/dL (31.0-37.0); MCV 97.2 fL (80.0-100.0); Mean Platelet Volume 6.9; Monocytes # (A) 0.6 k/uL (0-1.0); Monocytes % (A) 6 %; Neutrophils # (A) 6.2 k/uL (1.3-7.7); Neutrophils % (A) 60 %; Platelet Count 237 k/uL (150-450); RBC 4.25 m/uL (4.30-5.90); WBC 10.3 k/uL (3.8-10.6)
--- NOTE | 2017-07-27 12:52 | PN ---
PROGRESS NOTE DATE OF SERVICE: 07/27/2017 REASON FOR FOLLOWUP: Right hand and forearm dog bite cellulitis. INTERVAL HISTORY: The patient is afebrile. He is breathing comfortably. Denies having any chest pain or cough. No abdominal pain or any diarrhea. PHYSICAL EXAMINATION: On examination, blood pressure 112/56 with a pulse of 62, temperature 97.1. He is 95% on room air. General description is an elderly male up in the chair in no distress. RESPIRATORY SYSTEM: Unlabored breathing, clear to auscultation anteriorly. HEART: S1, S2. Regular rate and rhythm. ABDOMEN: Soft, no tenderness. Right hand and forearm swelling, which has improved, no drainage. LABS: White count of 10.3 with a BUN of 13, creatinine 1.03. Wound culture anaerobic gram- negative bacilli. DIAGNOSTIC IMPRESSION AND PLAN: Patient with right hand and forearm dog bite cellulitis and abscess, status post drainage. Culture so far negative for any resistant pathogen with anaerobic gram- negative. Plan will be to finish therapy with oral Augmentin 875 b.i.d. for 2 weeks. Script was sent to the pharmacy. Patient advised if any worsening swelling or redness to call us right away, otherwise, patient will be seen in the office in a week. MMODL / IJN: [id number] /
--- NOTE | 2017-07-27 13:50 | P.PN ---
Subjective Progress Note Date: 07/27/17 Principal diagnosis: Status post incision and drainage and irrigation and debridement right hand and forearm abscess Patient seen today resting in his hospital chair. He states he is doing well at this time, he does note some soreness throughout the hand. Denies any new onset of fever or chills. Objective - Vital Signs Vital signs: Vital Signs Temp 97.1 F L 07/27/17 07:00 Pulse 62 07/27/17 07:00 Resp 18 07/27/17 07:00 BP 112/56 07/27/17 07:00 Pulse Ox 95 07/27/17 07:00 Intake & Output 07/26/17 07/27/17 07/27/17 18:59 06:59 18:59 Other: # Voids 1 2 - Exam Right upper extremity: Bandages are in good position. His radial pulses 2+. His sensation to light touch throughout that extremity is intact - Labs CBC & Chem 7: 07/27/17 09:16 07/27/17 09:16 Labs: Abnormal Lab Results - Last 24 Hours (Table) 07/27/17 07/27/17 Range/Units 09:16 09:16 RBC 4.25 L (4.30-5.90) m/uL Carbon Dioxide 31 H (22-30) mmol/L Glucose 191 H (74-99) mg/dL Microbiology - Last 24 Hours (Table) 07/23/17 18:24 Anaerobic Culture - Final Arm - Right Anaerobic Gm Negative Bacilli 07/23/17 19:26 Blood Culture - Preliminary Blood No Growth after 72 hours Assessment and Plan Plan: Assessment: 1. Postop day #2 status post incision and drainage and irrigation and debridement right hand and forearm abscess Plan: 1. Pain control, oral medication as needed 2. Await culture and sensitivity, and infectious disease recommendations for outpatient antibiotics 3. Daily dressing changes 4. Ice and elevation 5. Medical recommendations 6. Discharge planning: On orthopedic standpoint, patient is stable for discharge Time with Patient: Less than 30
--- NOTE | 2017-07-27 18:18 | P.DS ---
Providers Date of admission: 07/23/17 17:11 Expected date of discharge: 07/27/17 Attending physician: Marybeth Hernandez Consults: 07/23/17 18:32 Consult Physician Routine Consulting Provider: Susan Bsas Consult Reason/Comments: right arm/hand cellulitis Do you want consulting provider notified?: Yes 07/24/17 13:08 Consult Physician Routine Consulting Provider: Tuan Kamara Consult Reason/Comments: dog bite right arm/hand, possible I&D Do you want consulting provider notified?: Already Contacted Primary care physician: Rodrigo Busby [facility] Course: Final Diagnoses: 1. Right hand and forearm Bite, cellulitis, abscess, status post I&D with irrigation, excisional debridement, wound cultures reporting anaerobic gram- negative bacilli 2. COPD 3. Gastroesophageal reflux disease Hospital Course:This is a 66-year-old gentleman sustained a dogbite to the right forearm and hand. Evaluated by orthopedics, status post I&D. Maintained on IV antibiotics of Unasyn as per infectious disease. Wound cultures negative for resistant pathogens with anaerobic gram-negative. Significant clinical improvement. Patient has been cleared for discharge by both orthopedic surgery and infectious disease. Patient is being discharged home in a stable condition with guarded prognosis. PHYSICAL EXAMINATION:VSS, General: Sitting up at side of bed, no acute distress , AAO 3. CVS: Regular S1 and S2,RESPIRATORY: Unlabored, bilaterally clear.ABDOMEN: Soft, no tenderness, positive bowel sounds. NEURO: No focal deficits. Microbiology 07/25/17 13:50 Hand - Right Gram Stain - Final 07/25/17 13:50 Hand - Right Wound Culture - Final 07/23/17 18:24 Arm - Right Anaerobic Culture - Final Anaerobic Gm Negative Bacilli 07/23/17 19:26 Blood Blood Culture - Preliminary No Growth after 72 hours 07/23/17 18:24 Arm - Right Gram Stain - Final 07/23/17 18:24 Arm - Right Wound Culture - Final 07/25/17 13:50 Hand - Right Anaerobic Culture - Preliminary The impression and plan of care has been dictated as directed. : I performed a history and examination of this patient, discussed the same with the dictator. I agree with the dictator's note ,documented as a scribe. Any additional findings or plans will be noted. Time taken: 35 minutes Patient Condition at Discharge: Stable Plan - Discharge Summary Discharge Rx Participant: No New Discharge Prescriptions: New Amoxic-Pot Clav 875-125Mg [Augmentin 875-125] 1 tab PO Q12HR #28 tablet Continue Simvastatin [Zocor] 20 mg PO HS Citalopram Hydrobromide [CeleXA] 20 mg PO QAM Tamsulosin HCl [Flomax] 0.4 mg PO HS Aspirin 325 mg PO HS Albuterol Inhaler [Ventolin Hfa Inhaler] 2 puff INHALATION RT-TID Nitroglycerin Sl Tabs [Nitrostat] 0.4 mg SUBLINGUAL Q5M PRN PRN Reason: Chest Pain Losartan/Hydrochlorothiazide [Hyzaar 100-25 Tablet] 1 tab PO QAM Cyclobenzaprine [Flexeril] 10 mg PO Q8H Sulfacetamide 10% Ophth Soln [Bleph-10] 1 drops BOTH EYES Q6H Albuterol Inhaler [Ventolin Hfa Inhaler] 2 puff INHALATION RT-Q4H PRN PRN Reason: Shortness Of Breath Ketoconazole [Ketoconazole 2%] 1 applic TOPICAL DAILY Budesonide/Formoterol Fumarate [Symbicort 160-4.5 Mcg Inhaler] 2 puff INHALATION RT-BID Omeprazole 40 mg PO QAM HYDROcodone/APAP 7.5-325MG [[place] 7.5-325] 1 tab PO TID Metoprolol/Hydrochlorothiazide [Lopressor Hct 50-25 mg Tab] 0.5 tab PO QAM Docusate [Colace] 100 mg PO QAM Discharge Medication List Albuterol Inhaler [Ventolin Hfa Inhaler] 2 puff INHALATION RT-TID 07/17/14 [ History] Aspirin 325 mg PO HS 07/17/14 [History] Citalopram Hydrobromide [CeleXA] 20 mg PO QAM 07/17/14 [History] Simvastatin [Zocor] 20 mg PO HS 07/17/14 [History] Tamsulosin HCl [Flomax] 0.4 mg PO HS 07/17/14 [History] Nitroglycerin Sl Tabs [Nitrostat] 0.4 mg SUBLINGUAL Q5M PRN 12/07/14 [History] Cyclobenzaprine [Flexeril] 10 mg PO Q8H 10/24/15 [History] Losartan/Hydrochlorothiazide [Hyzaar 100-25 Tablet] 1 tab PO QAM 10/24/15 [ History] Albuterol Inhaler [Ventolin Hfa Inhaler] 2 puff INHALATION RT-Q4H PRN 07/23/17 [ History] Budesonide/Formoterol Fumarate [Symbicort 160-4.5 Mcg Inhaler] 2 puff INHALATION RT-BID 07/23/17 [History] Docusate [Colace] 100 mg PO QAM 07/23/17 [History] HYDROcodone/APAP 7.5-325MG [[place] 7.5-325] 1 tab PO TID 07/23/17 [History] Ketoconazole [Ketoconazole 2%] 1 applic TOPICAL DAILY 07/23/17 [History] Metoprolol/Hydrochlorothiazide [Lopressor Hct 50-25 mg Tab] 0.5 tab PO QAM 07/23 [History] Omeprazole 40 mg PO QAM 07/23/17 [History] Sulfacetamide 10% Ophth Soln [Bleph-10] 1 drops BOTH EYES Q6H 07/23/17 [History] Amoxic-Pot Clav 875-125Mg [Augmentin 875-125] 1 tab PO Q12HR #28 tablet [Rx] Follow up Appointment(s)/Referral(s): Rodrigo Busby III, MD [Primary Care Provider] - 3 Days Susan Bass MD [STAFF PHYSICIAN] - 08/05/17 9:15 am Ambulatory/Diagnostic Orders: Complete Blood Count w/diff [LAB.AMB] Time Frame: 3 Days, Location: Determined By Patient Patient Instructions/Handouts: Animal Bite (DC) Activity/Diet/Wound Care/Special Instructions: Cardiac diet. NO smoking, cessation information provided. Activity as tolerated. Keep ice on hand and elevate, change dressings daily. Discharge Disposition: HOME SELF-CARE
== END 2017-07-27 13:55 | disposition home or self-care (01) | DRG 571 ==
LOC: 4MS4W 17:11
PROVIDERS: ADMIT Internal Medicine; ATTEND Internal Medicine
PROC: 0JBJ0ZZ Excision of Right Hand Subcutaneous Tissue and Fascia, Open Approach (ICD-10-PCS; principal; 2017-07-25 12:00)
PROC: 0JBG0ZZ Excision of Right Lower Arm Subcutaneous Tissue and Fascia, Open Approach (ICD-10-PCS; principal; 2017-07-25 12:00)
DX: S61.451A Open bite of right hand, initial encounter (principal); L03.113 Cellulitis of right upper limb; J44.9 Chronic obstructive pulmonary disease, unspecified; E78.5 Hyperlipidemia, unspecified; L02.511 Cutaneous abscess of right hand; F17.200 Nicotine dependence, unspecified, uncomplicated; H91.90 Unspecified hearing loss, unspecified ear; I10 Essential (primary) hypertension; I25.10 Atherosclerotic heart disease of native coronary artery without angina pectoris; I25.2 Old myocardial infarction; K21.9 Gastro-esophageal reflux disease without esophagitis; W54.0XXA Bitten by dog, initial encounter; S51.851A Open bite of right forearm, initial encounter; Z79.51 Long term (current) use of inhaled steroids; Z79.82 Long term (current) use of aspirin; Z79.899 Other long term (current) drug therapy; Z85.46 Personal history of malignant neoplasm of prostate; Z87.442 Personal history of urinary calculi; Z95.5 Presence of coronary angioplasty implant and graft
CPT/HCPCS: 80048; 85025; 85610; 87040; 87070; 87075; 87205; 94640

== ENCOUNTER 2017-09-14 10:44 | Inpatient (IN) | payer MEDICARE ==
[~2017-09-14 10:44] MED LIST: LACTATED RINGERS 1,000 ML IV SCH; MIDAZOLAM 2 MG/2 ML VIAL IV PRN; SODIUM CHLORIDE 0.9% 1,000 ML IV SCH; fentaNYL (PF) 50 MCG/ML 2 ML AMP IV PRN
[2017-09-14] MEDS ORDERED: IV FLUID CONTINUATION 900 ML IV ONE (13:05)
[2017-09-14] MEDS ORDERED: ePHEDrine SULFATE/0.9% NACL/PF 50 MG/5 ML SYRINGE IV ONE (13:08)
[2017-09-14] MEDS ORDERED: HEPARIN SODIUM,PORCINE 10,000 UNIT/ML 1 ML VIAL ONE (13:08)
[2017-09-14] MEDS ORDERED: NEOSTIGMINE 1 MG/ML 10 ML VIAL ONE (13:08)
[2017-09-14] MEDS ORDERED: MIDAZOLAM 2 MG/2 ML VIAL ONE (13:08)
[2017-09-14] MEDS ORDERED: diphenhydrAMINE 50 MG/ML 1 ML VIAL ONE (13:08)
[2017-09-14] MEDS ORDERED: ISOPROTERENOL 250 MCG/1.25 ML SYR IV ONE (13:08)
[2017-09-14] MEDS ORDERED: fentaNYL (PF) 50 MCG/ML 2 ML AMP ONE (13:08)
[2017-09-14] MEDS ORDERED: GLYCOPYRROLATE 0.2 MG/ML 2 ML VIAL ONE (13:08)
[2017-09-14] MEDS ORDERED: ROCURONIUM BROMIDE 10 MG/ML 10 ML VIAL IV ONE (13:08)
[2017-09-14] MEDS ORDERED: LIDOCAINE 1% INJ 10MG/ML (20 ML MDV) ONE (13:08)
[2017-09-14] MEDS ORDERED: PHENYLEPHRINE-0.9% NACL SYG 1 MG/10 ML SYRINGE ONE (13:08)
[2017-09-14] MEDS ORDERED: PROPOFOL 10 MG/ML 20 ML VIAL IV ONE (13:08)
[2017-09-14] MEDS ORDERED: LIDOCAINE URO-JET JELLY 2% 5 ML KIT ONE (13:30)
[2017-09-14] MEDS ORDERED: LIDOCAINE URO-JET JELLY 2% 5 ML KIT URETHRAL ONE ×2 (13:36→13:45)
[2017-09-14] MEDS ORDERED: LIDOCAINE 2% INJ 20 MG/ML SQ ONE (13:56)
[2017-09-14] MEDS ORDERED: HEPARIN SODIUM (1,000 UNIT/ML) 1,000 UNIT in SODIUM CHLORIDE 0.9% 1,000 ML IRRIGATION ONE (16:30)
[2017-09-14] MEDS ORDERED: SODIUM CHLORIDE 0.9% 1,000 ML IV ONE (17:22)
--- NOTE | 2017-09-14 19:10 | P.PCN ---
Preoperative Diagnosis: Long/extended procedure The procedure involved diagnostic EP study and mapping and ablation of AV calvin reentry which is very symptomatic and associated with hypotension even in the supine position at a relatively slow rates this is a very long procedure requiring multiple in the right atrium and the left atrium The standard sites were mapped and ablated including the posterior septal area anterior to the coronary sinus, coronary sinus floor coronary sinus roof within the coronary sinus, on the tricuspid annulus of the septum. Transseptal catheterization was performed left-sided mapping was performed left-sided ablation was performed transiently the tachycardia was completely eliminated but it returned once again Repeat mapping of the right septum including mapping of the anterior septum mid septum and posterior septum and along the tricuspid annulus. Finally ablation between the mid and the anterior septum os to the His bundle resulted in complete elimination of the tachycardia and rendered noninducible without any complications The procedure lasted for almost 5 hours Anesthesia: GETA Disposition: floor
[2017-09-14] MEDS ORDERED: ACETAMINOPHEN IV (For NPO) 1,000 MG in EMPTY BAG 1 BAG IVPB ONE (19:11)
[2017-09-14] MEDS ORDERED: ACETAMINOPHEN TAB 325 MG TAB PO PRN (19:11)
[2017-09-14] MEDS ORDERED: LORazepam 2 MG/ML INJ IV PRN (19:19)
[2017-09-14] MEDS: SYMBICORT 160-4.5 MCG INHALER INHALATION SCH (20:25)
--- NOTE | 2017-09-14 20:26 | CE ---
CARDIAC ELECTROPHYSIOLOGY REPORT This is a 66-year-old male patient of Dr. Busby and Dr. Zaman who has recurrent supraventricular tachycardia and is quite symptomatic from this with presyncope. He was brought in for a diagnostic EP study and radiofrequency ablation. He has drug- refractory SVT. The patient was brought to the EP lab in a fasting state. Written informed consent was obtained prior to the procedure. The diagnostic EP study was performed under conscious sedation with anesthesia, but subsequently general anesthesia was employed since the patient has sleep apnea and was snoring quite severely. Venous sheaths were placed in the right and left femoral veins, and via these diagnostic catheters were positioned in the right heart (high right atrial catheter, His bundle catheter, RV catheter and coronary sinus catheter). Sinus cycle length 790 milliseconds, QRS interval 89 milliseconds, CA 168 milliseconds, QT 389 milliseconds. AH interval 71 milliseconds, HV interval 44 milliseconds. High right atrial stimulation was performed and RV stimulation was performed and coronary sinus pacing was performed. AV node Wenckebach block 380 milliseconds, VA Wenckebach block 340 milliseconds. Tachycardia was induced with CS pacing at 360 milliseconds. Tachycardia cycle length was 446 milliseconds. Entrainment from the RV was performed. Post-pacing interval was long, and the post-pacing interval minus tachycardia cycle length was also long at 215 milliseconds. Shortest VA time was 88 milliseconds. This was consistent with AV calvin reentry. A long sheath and a mapping ablation catheter were placed in the right heart and the patient was intubated for catheter stability and 3D mapping of the right atrium was performed. The His bundle was tagged. The coronary sinus was tagged. Tricuspid anulus was tagged. Patient's anatomy was difficult. It was difficult to place the high right atrial catheters in a stable position as well as the His bundle catheter in a stable position, and coronary sinus catheter placement was also difficult, but we finally positioned the coronary sinus in an excellent position. This was a rotated heart. The anatomy of the septum was also unusual. Mapping of the slow pathway was performed, first in the posterior septal aspect just anterior to the coronary sinus, then outside the coronary sinus on the floor and at the roof of the coronary sinus and within the coronary sinus on its floor and then at its roof. The mid septal area was also mapped. Tricuspid anulus, off the septum, was also mapped. All these sides were ablated. No junctional rhythm was obtained. The tachycardia could be re-induced easily. Transseptal catheterization was performed. Intracardiac echocardiography was performed. 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 RF ablation along the mitral anulus resulted in complete elimination of the tachycardia briefly, but the tachycardia then returned. Repeat ablation in this area did not result in elimination of the tachycardia. The right atrium was then re-mapped. Heparin was stopped and this time the mid septal area and the anteroseptal area were mapped in detail. Finally, after multiple attempts, RF ablation in the mid septal area at its junction with the anterior septum resulted in complete elimination of the tachycardia. The tachycardia could not be induced with double extra stimuli from the coronary sinus any more. This was a very long procedure, lasting almost 5 hours, on account of unusual anatomy and the difficulty in finding the slow pathway. This was most likely a deep slow pathway close to the His bundle area. At the end of the procedure, the CA interval remained stable. There was no injury to the fast pathway. The patient tolerated the procedure well without any acute complications. He was extubated and transferred to telemetry. RESULT: Diagnostic EP study revealing AV calvin re-entry as the mechanism of the tachycardia, successful mapping and ablation of AV calvin reentry in the junction between the mid septal and anteroseptal area. Patient had an unusual septal anatomy, and this was a very long procedure lasting almost 5 hours. PROCEDURES PERFORMED: 1. Comprehensive diagnostic EP study. 2. CS pacing recording. 3. Programmed stimulation following Isuprel. (Isuprel was used for induction of the tachycardia, but pacing resulted in induction of atrial fibrillation and the patient required electrical cardioversion on one occasion.). 4. Intracardiac echocardiography. 5. Transseptal catheterization. 6. Three-dimensional mapping of the right and left atria. 7. Ablation of the slow pathway/atrial ablation. 8. Extended procedure; long procedure time. Patient tolerated the procedure well without any acute complication. MMODL / IJN: [id number] /
[2017-09-14] MEDS ORDERED: TAMSULOSIN 0.4 MG CAP.ER.24H PO SCH (21:00)
[2017-09-14] MEDS ORDERED: ATORVASTATIN 10 MG TAB PO SCH (21:00)
[2017-09-14] MEDS: HYDROcodone/APAP 5-325MG 1 EACH TAB PO PRN (21:55)
[2017-09-14] MEDS: ASPIRIN 325 MG TAB PO SCH (23:43)
[2017-09-14] MEDS: CYCLOBENZAPRINE 10 MG TAB PO SCH (23:43)
[2017-09-15 01:16] VITALS: BMI 34.7
[2017-09-15] MEDS: CYCLOBENZAPRINE 10 MG TAB PO SCH ×2 (04:38→20:09)
[2017-09-15] MEDS ORDERED: PANTOPRAZOLE 40 MG TABLET PO SCH (07:30)
[2017-09-15] MEDS: SYMBICORT 160-4.5 MCG INHALER INHALATION SCH ×2 (08:02→20:04)
[2017-09-15] MEDS ORDERED: LOSARTAN-HCTZ 50-12.5 MG 1 EACH TAB PO SCH (09:00)
--- NOTE | 2017-09-15 11:36 | P.DS ---
Providers Attending physician: Nino Roca Primary care physician: Rodrig[facility] Course: Patient is doing well. He is lying flat in bed looks comfortable no chest discomfort no pleuritic chest discomfort no dizziness lightheadedness or palpitations rhythm is regular Blood pressure 120/60 mmHg pulse rate in the 70s, afebrile Breath sounds are clear no rhonchi no crackles Heart sounds are normal normal S1 normal S2 no murmurs or gallops no rub Abdomen soft nontender Extremities warm no edema in the groins of healed well there is no swelling no hematoma Impression Recurrent supraventricular tachycardia, AV calvin reentry with associated dizziness AV node reentry was very easily inducible in the EP lab and was associated with a drop in blood pressure consistent with his symptoms Obstructive sleep apnea Patient is hard of hearing. He required intubation yesterday. He was quite belligerent prior to the procedure and even after the procedure he was swinging his arms wildly attempting to strike at the nurses He required a fair amount of sedation thereafter to keep him calm This morning he appears calm Plan Discharge home today in follow-up with Dr. Bahtia in 1 week Discontinue beta donald but continue all other medications Patient Condition at Discharge: Stable Plan - Discharge Summary Discharge Rx Participant: No New Discharge Prescriptions: Continue Simvastatin [Zocor] 20 mg PO HS Tamsulosin HCl [Flomax] 0.4 mg PO HS Aspirin 325 mg PO HS Nitroglycerin Sl Tabs [Nitrostat] 0.4 mg SUBLINGUAL Q5M PRN PRN Reason: Chest Pain Losartan/Hydrochlorothiazide [Hyzaar 100-25 Tablet] 1 tab PO QAM Cyclobenzaprine [Flexeril] 10 mg PO Q8H Albuterol Inhaler [Ventolin Hfa Inhaler] 2 puff INHALATION RT-Q4H PRN PRN Reason: Shortness Of Breath Ketoconazole [Ketoconazole 2%] 1 applic TOPICAL DAILY PRN PRN Reason: Rash Budesonide/Formoterol Fumarate [Symbicort 160-4.5 Mcg Inhaler] 2 puff INHALATION RT-BID Omeprazole 40 mg PO QAM HYDROcodone/APAP 7.5-325MG [[place] 7.5-325] 1 tab PO TID Docusate [Colace] 100 mg PO QAM Albuterol Nebulized [Ventolin Nebulized] 2.5 mg INHALATION Q6H PRN PRN Reason: Shortness Of Breath Discontinued Metoprolol/Hydrochlorothiazide [Lopressor Hct 50-25 mg Tab] 0.5 tab PO QAM Discharge Medication List Aspirin 325 mg PO HS 07/17/14 [History] Simvastatin [Zocor] 20 mg PO HS 07/17/14 [History] Tamsulosin HCl [Flomax] 0.4 mg PO HS 07/17/14 [History] Nitroglycerin Sl Tabs [Nitrostat] 0.4 mg SUBLINGUAL Q5M PRN 12/07/14 [History] Cyclobenzaprine [Flexeril] 10 mg PO Q8H 10/24/15 [History] Losartan/Hydrochlorothiazide [Hyzaar 100-25 Tablet] 1 tab PO QAM 10/24/15 [ History] Albuterol Inhaler [Ventolin Hfa Inhaler] 2 puff INHALATION RT-Q4H PRN 07/23/17 [ History] Budesonide/Formoterol Fumarate [Symbicort 160-4.5 Mcg Inhaler] 2 puff INHALATION RT-BID 07/23/17 [History] Docusate [Colace] 100 mg PO QAM 07/23/17 [History] HYDROcodone/APAP 7.5-325MG [[place] 7.5-325] 1 tab PO TID 07/23/17 [History] Ketoconazole [Ketoconazole 2%] 1 applic TOPICAL DAILY PRN 07/23/17 [History] Omeprazole 40 mg PO QAM 07/23/17 [History] Albuterol Nebulized [Ventolin Nebulized] 2.5 mg INHALATION Q6H PRN 09/09/17 [ History] Follow up Appointment(s)/Referral(s): Magno Zaman MD [STAFF PHYSICIAN] - 09/23/17 4:30 pm () Patient Instructions/Handouts: Cardiac Ablation (DC) Activity/Diet/Wound Care/Special Instructions: Post EP study - Ablation instructions 1. Keep access sites dry for 2 days. 2. No heavy lifting or straining for 2 days. 3. Avoid bending the hips repeatedly for 2 days. 4. You may go up and down stairs slowly Call if the following is noted 1. Bleeding, increasing swelling or pain at the access sites. 2. Increasing chest discomfort, especially upon taking a deep breath. 3. Increasing shortness of breath, at rest or with exertion. 4. Undue cough / phlegm 5. Difficulty or pain while swallowing. 6. Pain or change in color in the extremities. 7. Fever, chills, rigors. 8. Increasing headache or neurologic symptoms. 9. Dizziness, fainting, palpitations Follow-up with Dr. Bhatia in 1 week Stop metoprolol Continue all other cardiac medications Continue all other medications unchanged Discharge home by 2 PM if ambulate in the hallways and groins of healed well and hemodynamically stable Discharge Disposition: HOME SELF-CARE
--- NOTE | 2017-09-15 15:32 | CT ---
EXAMINATION TYPE: CT brain wo con DATE OF EXAM: 09/15/2017 COMPARISON: MRI 08/13/2012 HISTORY: Blurry vision. CT DLP: 1020.3 mGycm Automated exposure control for dose reduction was used. FINDINGS: [id number] degenerative change noted. There is nonspecific areas of low attenuation within the white matter. No midline shift or mass effect. Calvarium intact. Dural based calcifications are noted. Intracranial atherosclerotic changes are noted. Left vertebral artery appears to be dominant. Mild prominence of the distal basilar artery noted which is stable fro m the previous MRI. IMPRESSION: DEGENERATIVE AND NONSPECIFIC WHITE MATTER CHANGES. MOST LIKELY IN THE BASIS OF REMOTE MICROVASCULAR I SCHEMIA. IF THERE IS CONCERN FOR ACUTE ISCHEMIA CORRELATE WITH MRI CLINICALLY WARRANTED. NO ACUTE HEMORRHAGE OR MASS EFFECT. MILD PROMINENCE OF THE DISTAL BASILAR ARTERY STABLE FROM THE PREV IOUS MRI MAY BE RELATED TO DOLICHOECTASIA. SHORT-TERM MRA THE [place] CAN BE OBTAINED TO EXCLUDE TINY ANEURYSM..
[2017-09-15] MEDS ORDERED: OMEPRAZOLE PO SCH (16:13)
[2017-09-15] MEDS ORDERED: HYZAAR PO SCH (16:20)
[2017-09-15] MEDS ORDERED: TAMSULOSIN 0.4 MG CAP.ER.24H PO SCH (16:21)
[2017-09-15] MEDS ORDERED: SIMVASTATIN 20MG PO SCH (16:23)
--- NOTE | 2017-09-15 18:06 | MR ---
EXAMINATION TYPE: MR brain wo con DATE OF EXAM: 09/15/2017 COMPARISON: 08/13/2012 HISTORY: Blurry vision T1-weighted sagittal, T2, FLAIR, and diffusion axial, and T2 coronal coronal views of the brain are s ubmitted. There is no evidence of acute ischemia. The ventricles, basal cisterns, and sulci overlying the conv exities are consistent with the patient's age. There are numerous areas of focal abnormal signal sca ttered throughout the white matter bilaterally. Findings are nonspecific but most typical remote micr ovascular ischemia. Demyelinating process not entirely excluded correlate clinically. There is no mass effect. Craniocervical junction maintained. Sella turcica has a normal appearance. No cerebellopontine angle mass. Changes of chronic sinusitis noted. IMPRESSION: 1. No acute ischemia. Nonspecific white matter changes most typical of remote microvascular ischemia which is similar to the prior exam.
[2017-09-15] MEDS ORDERED: LORazepam 1 MG TAB PO PRN (18:24)
[2017-09-15] MEDS: HYDROcodone/APAP 5-325MG 1 EACH TAB PO PRN (19:33)
[2017-09-15] MEDS: ASPIRIN 325 MG TAB PO SCH (19:33)
[2017-09-15] MEDS: CYCLOBENZAPRINE 10 MG TAB PO PRN (19:35)
[2017-09-15] MEDS ORDERED: ATORVASTATIN 40 MG TAB PO SCH (21:00)
[2017-09-16 04:24] VITALS: TEMP 97.7
[2017-09-16] MEDS: CYCLOBENZAPRINE 10 MG TAB PO PRN (06:39)
[2017-09-16] MEDS: SYMBICORT 160-4.5 MCG INHALER INHALATION SCH (07:54)
[2017-09-16 08:14] VITALS: BP 107/54; PULSE 67; RESP 16
[2017-09-16] MEDS ORDERED: LOSARTAN-HCTZ 50-12.5 MG 1 EACH TAB PO SCH (09:00)
[2017-09-16] MEDS ORDERED: CLOPIDOGREL 75 MG TAB PO SCH (09:00)
--- NOTE | 2017-09-16 10:43 | P.DS ---
Providers Date of admission: 09/16/17 09:28 Attending physician: Nino Roca Consults: 09/16/17 07:56 Consult Physician Urgent Consulting Provider: Adriano Quigley Consult Reason/Comments: visual disturbance Do you want consulting provider notified?: Yes Primary care physician: Rodrigo Adkins [facility] Course: Discharge summary. Repeat dictation Patient was discharged yesterday morning he was stable doing well no chest pain and had recovered well his groins had healed well. I will call in the afternoon preceding the patient had right eye symptoms with blurring of vision. No neurologic symptoms no weakness. He denied any chest discomfort no shortness of breathdisturbance A CT of the brain did not show any acute ischemic changes or embolic changes. Subsequently an MRI of the brain was performed and this did not reveal any new infarct or embolic event either. His symptoms slowly improved but they still persist until this morning. He denies any chest discomfort or undue shortness of breath no dizziness lightheadedness or palpitations. His left eye is fine. In the right eye he sees a few dots which are brown in color. He can read clearly he can see everything clearly other than a few dots in his eyes brother that in his visual field. On examination His eye exam in terms of ocular movements is completely normal. He is no neurologic weaknessto deficit. 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 Hypertension Right eye symptoms without any ischemic events noted in the brain MRI Suggest we spoke to Dr. Quigley who is seen today for an eye examination. In the interim I have asked him to stop aspirin and he was taking 325 mg of aspirin. We will start Plavix 75 mg daily along with xarelto 15 g by mouth daily for one month and thereafter he will switch back to aspirin Metoprolol is on hold All other medications to continue Follow-up with Dr. Bhatia in 1 week Patient Condition at Discharge: Stable Plan - Discharge Summary Discharge Rx Participant: No New Discharge Prescriptions: New Rivaroxaban [Xarelto] 15 mg PO DAILY #30 tab Clopidogrel [Plavix] 75 mg PO DAILY #30 tablet Continue RX: Simvastatin [Zocor] 20 mg PO HS RX: Tamsulosin HCl [Flomax] 0.4 mg PO HS RX: Nitroglycerin Sl Tabs [Nitrostat] 0.4 mg SUBLINGUAL Q5M PRN PRN Reason: Chest Pain RX: Losartan/Hydrochlorothiazide [Hyzaar 100-25 Tablet] 1 tab PO QAM RX: Cyclobenzaprine [Flexeril] 10 mg PO Q8H RX: Albuterol Inhaler [Ventolin Hfa Inhaler] 2 puff INHALATION RT-Q4H PRN PRN Reason: Shortness Of Breath RX: Ketoconazole [Ketoconazole 2%] 1 applic TOPICAL DAILY PRN PRN Reason: Rash RX: Budesonide/Formoterol Fumarate [Symbicort 160-4.5 Mcg Inhaler] 2 puff INHALATION RT-BID RX: Omeprazole 40 mg PO QAM RX: HYDROcodone/APAP 7.5-325MG [[place] 7.5-325] 1 tab PO TID RX: Docusate [Colace] 100 mg PO QAM RX: Albuterol Nebulized [Ventolin Nebulized] 2.5 mg INHALATION RT-Q6H PRN PRN Reason: Shortness Of Breath Discontinued RX: Aspirin 325 mg PO HS RX: Metoprolol/Hydrochlorothiazide [Lopressor Hct 50-25 mg Tab] 0.5 tab PO QAM Discharge Medication List RX: Simvastatin [Zocor] 20 mg PO HS 07/17/14 [History] RX: Tamsulosin HCl [Flomax] 0.4 mg PO HS 07/17/14 [History] RX: Nitroglycerin Sl Tabs [Nitrostat] 0.4 mg SUBLINGUAL Q5M PRN 12/07/14 [ History] RX: Cyclobenzaprine [Flexeril] 10 mg PO Q8H 10/24/15 [History] RX: Losartan/Hydrochlorothiazide [Hyzaar 100-25 Tablet] 1 tab PO QAM 10/24/15 [ History] RX: Albuterol Inhaler [Ventolin Hfa Inhaler] 2 puff INHALATION RT-Q4H PRN [History] RX: Budesonide/Formoterol Fumarate [Symbicort 160-4.5 Mcg Inhaler] 2 puff INHALATION RT-BID 07/23/17 [History] RX: Docusate [Colace] 100 mg PO QAM 07/23/17 [History] RX: HYDROcodone/APAP 7.5-325MG [[place] 7.5-325] 1 tab PO TID 07/23/17 [History] RX: Ketoconazole [Ketoconazole 2%] 1 applic TOPICAL DAILY PRN 07/23/17 [History] RX: Omeprazole 40 mg PO QAM 07/23/17 [History] RX: Albuterol Nebulized [Ventolin Nebulized] 2.5 mg INHALATION RT-Q6H PRN [History] Clopidogrel [Plavix] 75 mg PO DAILY #30 tablet 09/16/17 [Rx] Rivaroxaban [Xarelto] 15 mg PO DAILY #30 tab 09/16/17 [Rx] Follow up Appointment(s)/Referral(s): Adriano Quigley MD [STAFF PHYSICIAN] - 1 Week (Please stop by [facility], next to [place]. Dr. Quigley to call Dr. Roca after appointment.) Magno Zaman MD [STAFF PHYSICIAN] - 09/23/17 4:30 pm () Patient Instructions/Handouts: Cardiac Ablation (DC) Activity/Diet/Wound Care/Special Instructions: Post EP study - Ablation instructions 1. Keep access sites dry for 2 days. 2. No heavy lifting or straining for 2 days. 3. Avoid bending the hips repeatedly for 2 days. 4. You may go up and down stairs slowly Call if the following is noted 1. Bleeding, increasing swelling or pain at the access sites. 2. Increasing chest discomfort, especially upon taking a deep breath. 3. Increasing shortness of breath, at rest or with exertion. 4. Undue cough / phlegm 5. Difficulty or pain while swallowing. 6. Pain or change in color in the extremities. 7. Fever, chills, rigors. 8. Increasing headache or neurologic symptoms. 9. Dizziness, fainting, palpitations Follow-up with Dr. Bhatia in 1 week Stop metoprolol Continue all other cardiac medications Continue all other medications unchanged Discharge home by 2 PM if ambulate in the hallways and groins of healed well and hemodynamically stable Xarelto script filled at [facility] - 30 day free coupon applied.
[2017-09-16] MEDS ORDERED: RIVAROXABAN 15 MG TAB PO SCH (17:30)
== END 2017-09-16 11:39 | disposition home or self-care (01) | DRG 274 ==
LOC: CATHEP 10:44 → 6SEL 18:48 → CATHEP 09-16 09:27 → 6SEL 09-16 09:28
PROVIDERS: ADMIT Internal Medicine Clinical Cardiac Electrophysiology; ATTEND Internal Medicine Clinical Cardiac Electrophysiology
PROC: 02K83ZZ Map Conduction Mechanism, Percutaneous Approach (ICD-10-PCS; principal; 2017-09-16)
PROC: 4A0234Z Measurement of Cardiac Electrical Activity, Percutaneous Approach (ICD-10-PCS; principal; 2017-09-16)
PROC: 4A023FZ Measurement of Cardiac Rhythm, Percutaneous Approach (ICD-10-PCS; principal; 2017-09-16)
PROC: 02583ZZ Destruction of Conduction Mechanism, Percutaneous Approach (ICD-10-PCS; principal; 2017-09-16)
DX: I47.1 Supraventricular tachycardia (principal); E78.5 Hyperlipidemia, unspecified; G47.33 Obstructive sleep apnea (adult) (pediatric); H91.90 Unspecified hearing loss, unspecified ear; I10 Essential (primary) hypertension; H53.8 Other visual disturbances; I25.10 Atherosclerotic heart disease of native coronary artery without angina pectoris; F17.210 Nicotine dependence, cigarettes, uncomplicated; N40.0 Benign prostatic hyperplasia without lower urinary tract symptoms; M48.00 Spinal stenosis, site unspecified; K21.9 Gastro-esophageal reflux disease without esophagitis; Z71.6 Tobacco abuse counseling; Z82.49 Family history of ischemic heart disease and other diseases of the circulatory system; Z79.899 Other long term (current) drug therapy; Z79.82 Long term (current) use of aspirin; Z95.5 Presence of coronary angioplasty implant and graft; I25.2 Old myocardial infarction
CPT/HCPCS: 70450; 70551; 93462; 93613; 93623; 93653; 93662; 94640

== ENCOUNTER → 2017-11-25 | Outpatient (CLI) | payer MEDICARE ==
--- NOTE | 2017-11-25 13:31 | US ---
EXAMINATION TYPE: US carotid duplex BILAT DATE OF EXAM: 11/25/2017 COMPARISON: NONE CLINICAL HISTORY: I25.10 atherosclerotic heart disease. High cholesterol, no hx of tia or stroke EXAM MEASUREMENTS: RIGHT: Peak Systolic Velocity (PSV) cm/sec ----- Right CCA: 83.1 ----- Right ICA: 84.5 ----- Right ECA: 167.0 ICA/CCA ratio: 1.0 RIGHT: End Diastole cm/sec ----- Right CCA: 25.9 ----- Right ICA: 28.5 ----- Right ECA: 18.4 LEFT: Peak Systolic Velocity (PSV) cm/sec ----- Left CCA: 92.0 ----- Left ICA: 99.5 ----- Left ECA: 182.5 ICA/CCA ratio: 1.1 LEFT: End Diastole cm/sec ----- Left CCA: 23.8 ----- Left ICA: 21.9 ----- Left ECA: 20.9 VERTEBRALS (direction of flow): Right Vertebral: Antegrade Left Vertebral: Antegrade Rhythm: Normal Grayscale images show mild plaque at bilateral carotid bulb level. Velocity measurements and ratios r emain within normal limits in visualized portion of both internal carotid arteries. IMPRESSION: No hemodynamically significant stenosis seen in either internal carotid artery.
== END | disposition home or self-care (01) ==
LOC: RADUSWWP 12:55
PROVIDERS: ATTEND Family Medicine
DX: I25.10 Atherosclerotic heart disease of native coronary artery without angina pectoris (principal); E78.5 Hyperlipidemia, unspecified
CPT/HCPCS: 93880

== ENCOUNTER → 2022-04-09 | Day surgery (SDC) | payer MEDICARE ==
[2022-04-08 12:07] VITALS: BMI 27.1
[~2022-04-09] MED LIST changes: -MIDAZOLAM 2 MG/2 ML VIAL IV PRN; +PROPOFOL 10 MG/ML 20 ML VIAL IV ONE; -SODIUM CHLORIDE 0.9% 1,000 ML IV SCH; -fentaNYL (PF) 50 MCG/ML 2 ML AMP IV PRN
--- NOTE | 2022-04-09 07:41 | P.GSHP ---
History of Present Illness H&P Date: 04/09/22 CHIEF COMPLAINT: Colon screen HISTORY OF PRESENT ILLNESS: The patient is a 71-year-old male who presents for colon screen. Lower endoscopy was offered for further evaluation and management. PAST MEDICAL HISTORY: Please see list. PAST SURGICAL HISTORY: Please see list. MEDICATIONS: Please see list. ALLERGIES: Please see list. SOCIAL HISTORY: No illicit drug use FAMILY HISTORY: No reports of Crohn disease or ulcerative colitis. REVIEW OF ORGAN SYSTEMS: CONSTITUTIONAL: No reports of fevers or chills. PHYSICAL EXAM: VITAL SIGNS: Stable GENERAL: Well-developed pleasant in no acute distress. HEENT: No scleral icterus. Extraocular movements grossly intact. Moist buccal mucosa. NECK: Supple without lymphadenopathy. CHEST: Unlabored respirations. Equal bilateral excursions. CARDIOVASCULAR: Regular rate and rhythm. Distal 2+ pulses. ABDOMEN: Soft, nontender, nondistended. MUSCULOSKELETAL: No clubbing, cyanosis, or edema. ASSESSMENT: 1. Colon screen. PLAN: 1. Recommend proceeding with a lower endoscopy Past Medical History Past Medical History: COPD, GERD/Reflux, Hearing Disorder / Deafness, Myocardial Infarction (AR), Osteoarthritis (OA) Additional Past Medical History / Comment(s): severe CAHTO,migraines, hx kidney stone 2014, hx back pain, spinal stenosis Last Myocardial Infarction Date:: 2009 History of Any Multi-Drug Resistant Organisms: None Reported Past Surgical History: Appendectomy, Cardiac Ablation, Heart Catheterization With Stent, Orthopedic Surgery Additional Past Surgical History / Comment(s): EP study,I&D RT ARM, rt ROTATOR CUFF, DEVIATED SEPTUM, 5 heart caths, 1 stent, cystoscopy/lithotripsy Past Anesthesia/Blood Transfusion Reactions: Postoperative Nausea & Vomiting (PONV) Date of Last Stent Placement:: 2009 Smoking Status: Current every day smoker - Past Family History Father Family Medical History: Dementia Mother Additional Family Medical History / Comment(s): "rheumatic heart disease" Brother(s) Family Medical History: Cancer Additional Family Medical History / Comment(s): pancreatic Son(s) Family Medical History: Deep Vein Thrombosis (DVT) Medications and Allergies Home Medications Medication Instructions Recorded Confirmed Type Simvastatin [Zocor] 20 mg PO HS 07/17/14 04/08/22 History Tamsulosin HCl [Flomax] 0.4 mg PO HS 07/17/14 04/08/22 History Nitroglycerin Sl Tabs [Nitrostat] 0.4 mg SUBLINGUAL Q5M PRN 12/07/14 04/08/22 History Cyclobenzaprine [Flexeril] 10 mg PO Q8H 10/24/15 04/08/22 History Losartan/Hydrochlorothiazide 1 tab PO QAM 10/24/15 04/08/22 History [Hyzaar 100-25 Tablet] Albuterol Inhaler [Ventolin Hfa 2 puff INHALATION RT-Q4H PRN 07/23/17 04/08/22 History Inhaler] Budesonide/Formoterol Fumarate 2 puff INHALATION RT-BID 07/23/17 04/08/22 History [Symbicort 160-4.5 Mcg Inhaler] Ketoconazole [Ketoconazole 2%] 1 applic TOPICAL DAILY PRN 07/23/17 04/08/22 History Omeprazole 40 mg PO QAM 07/23/17 04/08/22 History Albuterol Nebulized [Ventolin 2.5 mg INHALATION RT-Q6H PRN 09/09/17 04/08/22 History Nebulized] Aspirin 325 mg PO DAILY 01/06/22 04/08/22 History Citalopram Hydrobromide [CeleXA] 20 mg PO Q2D 01/06/22 04/08/22 History HYDROcodone/APAP 10-325MG [[place] 1 tab PO QID 01/06/22 04/08/22 History 10-325] Allergies Allergy/AdvReac Type Severity Reaction Status Date / Time No Known Allergies Allergy Verified 04/08/22 12:00
[2022-04-09 08:33] VITALS: TEMP 97
--- NOTE | 2022-04-09 09:38 | P.PCN ---
Date of Procedure: 04/09/22 Description of Procedure: PREOPERATIVE DIAGNOSIS: Colonoscopy screening. POSTOPERATIVE DIAGNOSIS: Colonoscopy screening. OPERATION: Colonoscopy to the ascending colon SURGEON: Siena Bustamante MD. ANESTHESIA: MAC. INDICATIONS: The patient is a 71-year-old female who presents for colonoscopy screening. Last colonoscopy over 5 years ago. Benefits and risks were described and informed consent was obtained. DESCRIPTION OF PROCEDURE: The patient had undergone Sutab prep. The patient had been brought into the operating room and laid in the left lateral decubitus position. After adequate intravenous sedation, the rectum was examined with 2% lidocaine jelly. No external hemorrhoids were encountered. The rectal tone was within normal limits. No lesions were palpated in the rectal vault. An Olympus colonoscope was advanced to the hub of the scope terminating at the ascending colon. Despite abdominal wall pressure, scope could not advance beyond the ascending colon.. The prep was excellent. No scattered diverticulosis was encountered. No colonic polyps were found. No evidence of focal colitis was found. Retroflexion of the scope demonstrated grade 1 internal hemorrhoids without active bleeding or inflammation. The colon was desufflated. The patient had tolerated the procedure well. Withdrawal time was over 6 minutes. FINDINGS: Aronchick preparation quality scale 1 (1-5) Internal hemorrhoids, grade 1 No external prolapsed hemorrhoids. No arteriovenous malformations. No adenomatous polyps. No focal colitis. Extremely long colon terminating colonoscopy to ascending colon. RECOMMENDATIONS: Barium enema for visualization of cecum advised Repeat colonoscopy 5 years, 2026 Plan - Discharge Summary Discharge Rx Participant: No New Discharge Prescriptions: Continue Simvastatin [Zocor] 20 mg PO HS Tamsulosin HCl [Flomax] 0.4 mg PO HS Nitroglycerin Sl Tabs [Nitrostat] 0.4 mg SUBLINGUAL Q5M PRN PRN Reason: Chest Pain Losartan/Hydrochlorothiazide [Hyzaar 100-25 Tablet] 1 tab PO QAM Cyclobenzaprine [Flexeril] 10 mg PO Q8H Albuterol Inhaler [Ventolin Hfa Inhaler] 2 puff INHALATION RT-Q4H PRN PRN Reason: Shortness Of Breath Ketoconazole [Ketoconazole 2%] 1 applic TOPICAL DAILY PRN PRN Reason: Rash Budesonide/Formoterol Fumarate [Symbicort 160-4.5 Mcg Inhaler] 2 puff INHALATION RT-BID Omeprazole 40 mg PO QAM Albuterol Nebulized [Ventolin Nebulized] 2.5 mg INHALATION RT-Q6H PRN PRN Reason: Shortness Of Breath Aspirin 325 mg PO DAILY Citalopram Hydrobromide [CeleXA] 20 mg PO Q2D HYDROcodone/APAP 10-325MG [[place] 10-325] 1 tab PO QID Discharge Medication List Simvastatin [Zocor] 20 mg PO HS 07/17/14 [History] Tamsulosin HCl [Flomax] 0.4 mg PO HS 07/17/14 [History] Nitroglycerin Sl Tabs [Nitrostat] 0.4 mg SUBLINGUAL Q5M PRN 12/07/14 [History] Cyclobenzaprine [Flexeril] 10 mg PO Q8H 10/24/15 [History] Losartan/Hydrochlorothiazide [Hyzaar 100-25 Tablet] 1 tab PO QAM 10/24/15 [History] Albuterol Inhaler [Ventolin Hfa Inhaler] 2 puff INHALATION RT-Q4H PRN 07/23/17 [History] Budesonide/Formoterol Fumarate [Symbicort 160-4.5 Mcg Inhaler] 2 puff INHALATION RT-BID 07/23/17 [History] Ketoconazole [Ketoconazole 2%] 1 applic TOPICAL DAILY PRN 07/23/17 [History] Omeprazole 40 mg PO QAM 07/23/17 [History] Albuterol Nebulized [Ventolin Nebulized] 2.5 mg INHALATION RT-Q6H PRN 09/09/17 [History] Aspirin 325 mg PO DAILY 01/06/22 [History] Citalopram Hydrobromide [CeleXA] 20 mg PO Q2D 01/06/22 [History] HYDROcodone/APAP 10-325MG [[place] 10-325] 1 tab PO QID 01/06/22 [History] Follow up Appointment(s)/Referral(s): Siena Bustamante MD [STAFF PHYSICIAN] - As Needed Patient Instructions/Handouts: *Surgery [facility] - (Anesthesia) Endoscopy Discharge Instructions, Colonoscopy (DC) Activity/Diet/Wound Care/Special Instructions: Repeat colonoscopy 5 years2026 Discharge Disposition: HOME SELF-CARE
[2022-04-09 09:45] VITALS: RESP 16
[2022-04-09 09:54] VITALS: BP 102/56; PULSE 55
--- NOTE | 2022-04-09 11:36 | FL ---
EXAMINATION TYPE: FL barium enema DATE OF EXAM: 04/09/2022 COMPARISON: NONE HISTORY: Incomplete colonoscopy. TECHNIQUE: A single contrast barium enema study is performed. A total of 42 seconds of fluoroscopic time was utilized during procedure and 39 images obtained. FINDINGS: Sash Finisher view of the abdomen shows overall gas filled colon with non-obstructive bowel gas pa ttern. No evidence of any mass or polyp, obstructing or constricting lesion throughout the colon. No signif icant diverticular disease is noted. Tortuous sigmoid colon. Contrast was demonstrated within the cec um. IMPRESSION: No evidence of any mass or polyp, obstructing or constricting lesion throughout the colon. Tortuosity of the colon.
== END | disposition home or self-care (01) ==
LOC: ORWHC2ENDO 08:07
PROVIDERS: ATTEND Surgery Plastic and Reconstructive Surgery
DX: Z12.11 Encounter for screening for malignant neoplasm of colon (principal); K64.8 Other hemorrhoids; J44.9 Chronic obstructive pulmonary disease, unspecified; K21.9 Gastro-esophageal reflux disease without esophagitis; I25.2 Old myocardial infarction; M19.90 Unspecified osteoarthritis, unspecified site; Z90.49 Acquired absence of other specified parts of digestive tract; Z95.5 Presence of coronary angioplasty implant and graft; F17.200 Nicotine dependence, unspecified, uncomplicated; Z82.49 Family history of ischemic heart disease and other diseases of the circulatory system; Z80.8 Family history of malignant neoplasm of other organs or systems; Z79.51 Long term (current) use of inhaled steroids; Z79.82 Long term (current) use of aspirin; Z79.899 Other long term (current) drug therapy
CPT/HCPCS: 74270; G0121; J2704; 45378

== ENCOUNTER → 2022-07-13 | Outpatient (CLI) | payer MEDICARE ==
[2022-07-13 22:50] LABS: HCT 46.6 % (39.6-50.0); HGB 15.1 g/dL (13.0-17.0); MCH 32.1 pg (27.0-32.0); MCHC 32.4 g/dL (32.0-37.0); MCV 99.1 fL (80.0-97.0); Mean Platelet Volume 9.7 fL (9.5-12.2); NRBC Per 100 WBC 0 /100 WBCS (0.0-0.0); Platelet Count 301 X 10*3/uL (140-440); RDW 13.2 % (11.5-14.5); WBC 10.68 X 10*3/uL (4.50-10.00)
[2022-07-13 23:34] LABS: African American GFR (CKD) 69.6 (60.0-200.0); Albumin 4.7 g/dL (3.8-4.9); Albumin/Globulin Ratio 1.47 (1.60-3.17); Anion Gap 11.7 mmol/L (10.00-18.00); BUN/Creat Ratio 35.58 Ratio (12.00-20.00); Blood Urea Nitrogen 42.7 mg/dL (9.0-27.0); Calcium 10.5 mg/dL (8.7-10.3); Carbon Dioxide 27.3 mmol/L (20.0-27.5); Globulin 3.2 g/dL (1.6-3.3); Non-African American GFR(CKD) 60.1 (60.0-200.0); Potassium 5.1 mmol/L (3.5-5.5); Total Bilirubin 0.6 mg/dL (0.30-1.20); Total Protein 7.9 g/dL (6.2-8.2)
== END | disposition home or self-care (01) ==
LOC: LABPAT 14:51
PROVIDERS: ATTEND Surgery Plastic and Reconstructive Surgery
DX: Z01.818 Encounter for other preprocedural examination (principal); Z53.9 Procedure and treatment not carried out, unspecified reason
CPT/HCPCS: 80053; 85027

== ENCOUNTER → 2022-12-31 | Outpatient (CLI) | payer MEDICARE ==
--- NOTE | 2022-12-31 12:26 | CTL ---
EXAMINATION TYPE: CT Low Dose Lung DATE OF EXAM ORDERED: 12/31/2022 HISTORY: Z87.891 personal hx tobacco use. Current smoker, 82.5 pack year history. Lung cancer screeni ng CT DLP: 90.[address] CTDI: 2.4 mGy Automated exposure control for dose reduction was used. SCREENING VISIT: First screening visit COMPARISON: Chest radiograph 06/07/2017 TECHNIQUE: Low dose computed tomography scan was performed through the chest at 1 mm thick sections a nd reconstructed images in multiple planes at 1 mm and [address] DIAGNOSTIC QUALITY: Satisfactory FINDINGS: LUNG NODULES: No clinically significant pulmonary nodules. LUNGS: COPD: Severity: Mild Fibrosis: Severity: Mild to moderate with bilateral upper lobe anterior and lateral paraseptal emphys ematous changes with subpleural reticular opacities. There is some bibasilar subpleural sparing. Lymph nodes: None Other findings: None RIGHT PLEURAL SPACE: Effusion: None Calcification: None Thickening: None Pneumothorax: None LEFT PLEURAL SPACE: Effusion: None Calcification: None Thickening: None Pneumothorax: None HEART: Heart Size: Mildly Enlarged Coronary Calcification: Moderate Pericardial Effusion: None OTHER FINDINGS: Upper abdomen: None Bony thorax: No acute osseous abnormality. Mild multilevel degenerative disc disease of the thoracic spine. Supraclavicular region: None Other: None IMPRESSION: 1. No clinically significant pulmonary nodules. 2. Mild to moderate emphysematous and pulmonary fibrotic changes. CT LUNG RAD AND CT CHEST RECOMMENDATION: Lung-Rad 1 Negative: Continue annual screening with LDCT in 12 months. S Modifier (other clinically significant findings): None
== END | disposition home or self-care (01) ==
LOC: RADCTMAIN 11:40
PROVIDERS: ATTEND Family Medicine
DX: Z12.2 Encounter for screening for malignant neoplasm of respiratory organs (principal); J43.9 Emphysema, unspecified; J84.10 Pulmonary fibrosis, unspecified; F17.210 Nicotine dependence, cigarettes, uncomplicated
CPT/HCPCS: 71271

== ENCOUNTER → 2023-07-15 | Outpatient (CLI) | payer MEDICARE ==
--- NOTE | 2023-07-16 14:14 | CT ---
EXAMINATION TYPE: CT posterior fossa wo con DATE OF EXAM: 07/15/2023 MRI internal auditory canals. COMPARISON: 07/15/2023 MRI internal auditory canals HISTORY: Hearing loss CT DLP: 244 mGycm Automated exposure control for dose reduction was used. Contrast: None Technique: Axial images 1 mm thick sections. Reconstructed images in the coronal plane. FINDINGS: Internal auditory canals appear normal without expansion or erosion. Cochlea are normal. Semicircular canals are normal. There is normal aeration of the bilateral mastoid air cells. The attics middle ea rs and external auditory canals are clear. Incus and malleus have normal orientation. Scutum are norm al. No cerebellar pontine angle mass is identified these images. IMPRESSION: 1. UNREMARKABLE POSTERIOR FOSSA CT.
--- NOTE | 2023-07-16 15:08 | CT ---
EXAMINATION TYPE: CT orbits wo con DATE OF EXAM: 07/15/2023 COMPARISON: None HISTORY: Hearing loss CT DLP: 244 mGycm Automated exposure control for dose reduction was used. Contrast: None Technique: Axial images 2 mm thick sections. Reconstructed images in the coronal plane. FINDINGS: Left and right maxillary sinuses are clear. Ethmoid air cells are clear. Sphenoid sinuses are clear. Frontal sinuses are clear within the field of view. No acute fractures are evident. Greater wings of the sphenoid are normal. Medial palencia of the orbits are intact. Orbital floors are intact. Left septal deviation is present superiorly. Ostiomeatal units are patent. Extraocular muscles are normal. Intraconal and extraconal fat is normal. The globes are symmetrical. Optic nerves appear unremarkable. There is poor visualization of the left orbit lens. IMPRESSION: 1. NO ACUTE ABNORMALITY BILATERAL ORBITS. 2. POOR VISUALIZATION OF THE LEFT ORBIT LENS. CORRELATE WITH SURGICAL HISTORY.
--- NOTE | 2023-07-24 14:01 | MR ---
EXAMINATION TYPE: MR brain and iac wo/w con DATE OF EXAM: 07/15/2023 COMPARISON: NONE HISTORY: 72-year-old male I190.3, Bilateral hearing loss. TECHNIQUE: Multiplanar, multisequence images of the brain and brainstem were acquired before and aft er administration of 10 mL IV Gadavist. Diffusion weighted imaging was performed. Additional coned- down sequences through the internal auditory canals and posterior cranial fossa before and after IV c ontrast administration. FINDINGS: Diffusion weighted images demonstrate no evidence of an acute ischemic lesion in the brain. T2/FLAIR weighted sequences show moderate scattered bright signal foci throughout the subcortical and deep white matter regions of both cerebral hemispheres. Midline structures demonstrate normal morphology. The craniocervical junction is normal. There is mild age-related cerebral cortical atrophy. The ventricles are of normal caliber. There is no evidence of an acute intracranial hemorrhage, infarct, mass, mass-effect or an extra-axia l fluid collection. There is no cerebellopontine angle mass. Dominant left vertebral artery. Major intracranial flow voids otherwise intact. The internal auditory canals are symmetric. Brainstem and skull base abnormalities are not seen. Post contrast images demonstrate no evidence of pathologic enhancement in the posterior cranial fossa or the internal auditory canals. There is no abnormal enhancement of the labyrinths. Moderate mucosal thickening ethmoid air cells. Slight undulating nasal septum. Suspect prior cataract surgery left side. IMPRESSION: 1. Mild age-related cerebral atrophy and moderate scattered burden of chronic small vessel ischemic d isease. No acute intracranial abnormality seen. 3. No specific abnormality on acoustic MRI. 4. Mild chronic ethmoid disease.
== END | disposition home or self-care (01) ==
LOC: RADMRIMAIN 11:23
PROVIDERS: ATTEND Otolaryngology Otology & Neurotology
DX: I67.82 Cerebral ischemia (principal); G31.1 Senile degeneration of brain, not elsewhere classified; J34.89 Other specified disorders of nose and nasal sinuses; H90.3 Sensorineural hearing loss, bilateral
CPT/HCPCS: 70480 ×2; 70553; A9585

== ENCOUNTER → 2024-08-23 | Outpatient (CLI) | payer MEDICARE ==
[2024-08-23 18:35] LABS: HCT 46.8 % (39.6-50.0); HGB 15.2 g/dL (13.0-17.0); MCH 32.3 pg (27.0-32.0); MCHC 32.5 g/dL (32.0-37.0); MCV 99.4 FL (80.0-97.0); Mean Platelet Volume 9.3 FL (9.5-12.2); NRBC Per 100 WBC 0 X 10*3/uL (0.00-0.01); Platelet Count 276 X 10*3/uL (140-440); RBC 4.71 X 10*6/uL (4.40-5.60); RDW 12.8 % (11.5-14.5); WBC 13.17 X 10*3/uL (4.50-10.00)
[2024-08-23 18:43] LABS: BUN/Creat Ratio 14.12 Ratio (12.00-20.00); Blood Urea Nitrogen 22.6 mg/dL (9.0-27.0); Calcium 9.6 mg/dL (8.7-10.3); Carbon Dioxide 25.3 mmol/L (21.6-31.8); Chloride 100 mmol/L (96-109); Glucose 123 mg/dL (70-110); Potassium 4.6 mmol/L (3.5-5.5); Sodium 140 mmol/L (135-145)
== END | disposition home or self-care (01) ==
LOC: LABWHC1 15:26
PROVIDERS: ATTEND Internal Medicine Cardiovascular Disease
DX: R07.2 Precordial pain (principal)
CPT/HCPCS: 36415; 80048; 85027

== ENCOUNTER 2024-08-25 07:04 | Day surgery (SDC) | payer MEDICARE ==
[2024-08-24 13:09] VITALS: BMI 29.5
[~2024-08-25 07:04] MED LIST changes: +ALPRAZolam 0.25 MG TAB PO PRN; +ALPRAZolam 0.5 MG TAB PO PRN; +ATORVASTATIN 80 MG TAB PO STA; -LACTATED RINGERS 1,000 ML IV SCH; +NITROGLYCERIN SL TABS 0.4 MG TAB SUBLINGUAL PRN; -PROPOFOL 10 MG/ML 20 ML VIAL IV ONE
[2024-08-25] MEDS: IV FLUID CONTINUATION 1,000 ML IV ONE ×2 (07:18→12:35)
[2024-08-25 07:48] VITALS: RESP 16; TEMP 98.5
[2024-08-25] MEDS: SODIUM CHLORIDE 0.9% 1,000 ML in EMPTY BAG 1 BAG IV ONE (07:49)
[2024-08-25] MEDS: ASPIRIN 325 MG TAB PO ONE (07:50)
[2024-08-25] MEDS: HEPARIN SODIUM,PORCINE (1 ML) 2,500 UNIT in SODIUM CHLORIDE 0.9% 250 ML IRRIGATION PRN (10:46)
[2024-08-25] MEDS: HEPARIN SODIUM,PORCINE 10,000 UNIT in SODIUM CHLORIDE 0.9% 1,000 ML IRRIGATION PRN (10:46)
[2024-08-25] MEDS: fentaNYL (PF) 50 MCG/1 ML VIAL IVP ONE (10:53)
[2024-08-25] MEDS: LIDOCAINE 1% INJ 10MG/ML (20 ML MDV) SQ ONE (10:53)
[2024-08-25] MEDS: MIDAZOLAM 2 MG/2 ML VIAL IVP ONE (11:12)
[2024-08-25] MEDS: IOPAMIDOL-370 100ML BTL INJ ONE (11:16)
[2024-08-25] MEDS ORDERED: RX INFO: IV CONTRAST WAS GIVEN 1 EACH MISC MISCELLANE PRN (11:34)
[2024-08-25 15:07] VITALS: PULSE 65
[2024-08-25 16:25] VITALS: BP 111/56
--- NOTE | 2024-08-25 21:02 | CC ---
CARDIAC CATHETERIZATION REPORT INDICATION: Shortness of breath with abnormal stress test. PROCEDURE NOTE: After obtaining informed consent, left heart catheterization and coronary angiogram were performed via the right femoral artery using standard Elvi catheters. The patient received moderate conscious sedation. Total sedation time was 25 minutes. Right femoral arterial access was obtained using Seldinger technique, 6-Vietnamese sheath was placed. Catheters and wires were floated into the ascending aorta under fluoroscopic guidance. The patient has renal insufficiency with a creatinine of 1.6. His contrast threshold is 150 mL. We used as little contrast as we could. I initially attempted right radial artery access, but was unsuccessful, hence proceeded with the femoral catheterization. The patient underwent a femoral angiogram and Angio-Seal at the end of the procedure. FINDINGS: 1. HEMODYNAMICS: Left ventricular end-diastolic pressure is 14 to 16 mm. There is no significant gradient across the aortic valve. 2. LEFT VENTRICULOGRAM: Left ventriculogram is not performed. 3. ANGIOGRAPHIC DATA: a.Right coronary artery: Right coronary artery is totally occluded proximally. b.Left main coronary artery: Left main coronary artery appears calcified, but is free of significant stenosis. Divides into left anterior descending coronary artery and circumflex coronary artery. c.LAD shows a mild nonobstructive disease in its midportion. d.Circumflex coronary artery gives extensive collaterals to the distal right coronary artery with 30% to 40% stenosis proximally. CONCLUSIONS: Occluded right coronary artery with mild to moderate nonobstructive disease involving LAD and circumflex coronary artery. The patient's abnormal stress test is related to the chronically occluded right coronary artery and he does not have any significant progression of the CAD to explain his shortness of breath. His management is going to be with optimal medical therapy. MMODL / IJN: [id number] /
== END 2024-08-25 16:39 | disposition home or self-care (01) ==
LOC: CATHCVL 07:04
PROVIDERS: ATTEND Internal Medicine Cardiovascular Disease
DX: I25.10 Atherosclerotic heart disease of native coronary artery without angina pectoris (principal); I10 Essential (primary) hypertension; E78.5 Hyperlipidemia, unspecified; F17.210 Nicotine dependence, cigarettes, uncomplicated; Z79.82 Long term (current) use of aspirin; Z79.899 Other long term (current) drug therapy
CPT/HCPCS: 93458; 99152; 99153; C1760; C1769 ×2; C1894 ×2; J2250; J1644 ×2; J2003; Q9967; J3010

== ENCOUNTER → 2024-11-23 | Outpatient (CLI) | payer MEDICARE ==
--- NOTE | 2024-11-23 14:13 | CT ---
EXAMINATION TYPE: CT brain wo con DATE OF EXAM: 11/23/2024 COMPARISON: 09/15/2017 CLINICAL INDICATION: Male, 74 years old with history of R41.3 Memory impairment; PHH, dizziness, yong ry loss CT DLP: 1201 mGycm Automated exposure control for dose reduction was used. Findings: The ventricles, basal cisterns and sulci over convexities are mildly consistent mild generalized age- appropriate atrophy.. There is no mass effect or shift of midline structures. There is no acute intra or extra-axial hemorrhage. The posterior fossa including the brainstem, fourth ventricle and cerebellopontine angles appear delmy sly normal. The intraorbital contents appear normal symmetric There are moderate chronic inflammatory changes in the right maxillary sinus.. There is a right cochl ear implant Calvarium is intact. IMPRESSION: 1. Mild age appropriate senescent changes as described above. 2. No acute bleed or mass effect. 3. Moderate chronic ventilatory changes in the right maxillary sinus. [facility], , 11/23/2024 2:10 PM
== END | disposition home or self-care (01) ==
LOC: RADCTMAIN 13:40
PROVIDERS: ATTEND Family Medicine
DX: R41.3 Other amnesia (principal); J34.89 Other specified disorders of nose and nasal sinuses; G93.89 Other specified disorders of brain
CPT/HCPCS: 70450